=== PATIENT | female | born 1965 | race Caucasian/White ===

== ENCOUNTER 2018-02-10 21:47 | Inpatient (IN) | payer MEDICARE, MEDICAID ==
--- NOTE | 2018-02-10 23:04 | RAD ---
AP VIEW OF THE CHEST: 02/10/18 INDICATION: History of DKA and leukocytosis. FINDINGS: No acute abnormality. The AICD is unchanged in appearance. Chronic lung changes are similar. Chronic osseous changes are similar to the comparison 07/10/17. IMPRESSION: No acute abnormality. POS: [facility]
[2018-02-10] MEDS ORDERED: Ketorolac Tromethamine 30 MG/ML VIAL ONE (23:19)
[2018-02-10 23:37] LABS: ALT (SGPT) 129 U/L (8-55); AST (SGOT) 81 U/L (5-34); Albumin 4.2 g/dL (3.5-5.0); Alkaline Phosphatase 118 U/L (40-150); Anion Gap 17 mmol/L (10-20); BUN (Urea Nitrogen) 18 mg/dL (9.8-20.1); Bilirubin, Total 0.2 mg/dL (0.2-1.2); Calc. Creatinine Clearance 0 mL/min (70-130); Calcium 8.9 mg/dL (7.8-10.44); Carbon Dioxide 20 mmol/L (22-29); Chloride 104 mmol/L (98-107); Estimated GFR-MDRD 45; Globulin 3.1 g/dL (2.4-3.5); Glucose 173 mg/dL (70-105); Lipase 4 U/L (8-78); Magnesium 1.8 mg/dL (1.6-2.6); Potassium 3.4 mmol/L (3.5-5.1); Protein, Total 7.3 g/dL (6.0-8.3); Sodium 138 mmol/L (136-145)
[2018-02-11 00:40] LABS: Base Excess-Venous 2.4 mmol/L (0 (+/- 2.5)); Bicarbonate (HCO3v) 28.6 mmol/L (1.0-85.0); CO2 Tension (PvCO2) 51.1 mmHg (41.0-51.0); Calcium, Ionized 1.11 mmol/L (1.12-1.32); Hemoglobin - Calc 10.8 g/dL (12.0-18.0); O2 Tension (PvO2) 21.6 mmHg (35.0-45.0); Potassium 3.7 mmol/L (3.4-4.7); T. Carbon Dioxide 30.2 mmol/L (1.0-85.0); pH (Venous) 7.356 (7.35-7.45)
[2018-02-11] MEDS ORDERED: HYDROcodone/Acetaminophen 5/325 mg Tablet PO PRN ×2 (03:11)
[2018-02-11] MEDS ORDERED: Sodium Chloride 0.9% 1,000 ML IV SCH ×2 (03:11→04:00)
[2018-02-11] MEDS ORDERED: Acetaminophen 325 MG TAB PO PRN (03:11)
[2018-02-11] MEDS ORDERED: Ondansetron ODT 4 MG TAB SL PRN (03:11)
[2018-02-11] MEDS ORDERED: Ondansetron HCl/PF 4 MG/2 ML Vial IVP PRN ×2 (03:11→03:57)
[2018-02-11] MEDS ORDERED: Insulin Regular 300 UNITS/3 ML VIAL SC PRN (03:57)
[2018-02-11] MEDS ORDERED: Dextrose 5% in Water 1,000 ML IV PRN (03:57)
[2018-02-11] MEDS ORDERED: Dextrose 50% Abboject 50 ML SYRINGE SLOW IVP PRN (03:57)
[2018-02-11] MEDS ORDERED: Senokot 8.6 MG TAB PO PRN (03:57)
--- NOTE | 2018-02-11 04:20 | HP ---
DATE OF ADMISSION: 02/11/2018 PRIMARY CARE PHYSICIAN: Cassie Nichols DO PRIMARY SENIOR DEVELOPER: Cj Person MD CHIEF COMPLAINT: The patient is a transfer from [facility] for diabetic ketoacidosis. HISTORY OF PRESENT ILLNESS: The patient is a 52-year-old female with diabetes mellitus type 2, hyper tension, and dyslipidemia who presented to the emergency room at [facility] with nausea and intermitt ent vomiting. The vomitus contained food, which she had eaten. She also lost her appetite. She had 1 or 2 episodes of diarrhea which were watery. She had some abdominal cramping. She also had some mouth pain secondary to recent dental extraction. No fever reported. She had intermittent chills an d generalized weakness. In the emergency room, her initial vital signs showed temperature 97.3, respiration 18, pulse 93, blo od pressure 127/63 with O2 saturation 97% on room air. A workup in the emergency room was consistent with diabetic ketoacidosis with anion gap of 32, bicarbonate 14, creatinine 1.57 with blood glucose of 441. Ketones was 2.43. She received IV fluid with Zofran, Phenergan, and was started on insulin drip. PAST MEDICAL HISTORY: 1. Diabetes mellitus type 2. 2. Hypertension. 3. Dyslipidemia. 4. Hypothyroidism. 5. Anxiety and depression. 6. Cardiomyopathy. PAST SURGICAL HISTORY: 1. AICD placement. 2. Back surgery at age of 10. 3. Cholecystectomy. 4. Right total hip replacement. 5. Laser surgery of her left eye. ALLERGIES: Patient is allergic to MORPHINE, SULFA, AMBIEN and PROCHLORPERAZINE. FAMILY HISTORY: Father with [place]. Mother with cirrhosis of liver. SOCIAL HISTORY: She is , lives at home with her family. No tobacco, alcohol, or drug use. REVIEW OF SYSTEMS: The following complete review of systems was negative, unless otherwise mentioned in the HPI or below: Constitutional: Weight loss or gain, ability to conduct usual activities. Sk in: Rash, itching. Eyes: Double vision, pain. ENT/Mouth: Nose bleeding, neck stiffness, pain, te nderness. Cardiovascular: Palpitations, dyspnea on exertion, orthopnea. Respiratory: Shortness of breath, wheezing, cough, hemoptysis, fever or night sweats. Gastrointestinal: Poor appetite, abdom inal pain, heartburn, nausea, vomiting, constipation, or diarrhea. Genitourinary: Urgency, frequenc y, dysuria, nocturia. Musculoskeletal: Pain, swelling. Neurologic/Psychiatric: Anxiety, depressio n. Allergy/Immunologic: Skin rash, bleeding tendency. HOME MEDICATIONS: Patient does not remember all of her home medications. She is currently on Levemi r. She denies any noncompliance with her medications. PHYSICAL EXAMINATION: VITAL SIGNS: As discussed above. GENERAL: A 52-year-old female with generalized weakness and fatigue. HEENT: Head: Atraumatic, normocephalic. Sclera anicteric. Dry mucous membranes. No oral lesion. NECK: Supple. No JVD appreciated. No carotid bruit. LUNGS: Essentially clear to auscultation bilaterally. No wheezing, rales, or rhonchi. HEART: S1, S2 present. Regular rate and rhythm. No rubs or gallops. ABDOMEN: Soft, mild epigastric tenderness, without any rebound, guarding. No costovertebral angle t enderness. EXTREMITIES: No edema or calf tenderness. NEUROLOGIC: Grossly nonfocal. Moves all four extremities. PSYCHIATRY: Alert, awake, oriented x3. SKIN: Warm and dry. LYMPH NODES: No palpable lymph nodes in the neck. PERIPHERAL VASCULAR: Radial pulses palpable bilaterally. MUSCULOSKELETAL: No joint swelling or tenderness. LABORATORY AND DIAGNOSTIC FINDINGS: As discussed above. Total bilirubin was 0.3 with AST 152, ALT o f 170. Ketone was 2.43. WBC was 7.2. Chest x-ray by my review was negative for infiltrate. Teleme try monitoring by my review showed sinus rhythm. IMPRESSION: 1. Diabetic ketoacidosis of unclear etiology. Probably precipitated by dehydration. 2. Nausea, vomiting, and diarrhea. Possibilities include infectious gastroenteritis versus due to d iabetic ketoacidosis. The patient denies missing any insulin dose. 3. Abnormal liver function tests, probably secondary to dehydration. 4. Acute kidney injury on chronic kidney disease, stage 2 secondary to dehydration. 5. Metabolic acidosis secondary to diabetic ketoacidosis. 6. Chronic anemia. 7. Hypertension. 8. Diabetes mellitus type 2. 9. Dyslipidemia. 10. Hypothyroidism. 11. Anxiety, depression 12. Cardiomyopathy with ejection fraction 25%, status post automated implantable cardioverter defibr illator. Patient also has a history of ventricular tachycardia. PLAN: The patient will be monitored on the medical floor. Her repeat labs at this facility showed n ormal anion gap. We will discontinue insulin drip and start her on sliding scale. Continue IV fluid s. We will monitor closely for volume overload. We will repeat labs on a daily basis. Plan of care was discussed with the patient in detail, she stated understanding.
[2018-02-11] MEDS: NS 0.9% w/ 20 MEQ KCL 1,000 ML/1,000 ML BAG IV SCH ×2 (04:25→13:09)
[2018-02-11 05:06] VITALS: BMI 19.3
[2018-02-11] MEDS: Insulin Regular 300 UNITS/3 ML VIAL SC PRN ×3 (06:56→19:16)
[2018-02-11] MEDS: Famotidine 20 MG TAB PO SCH (08:19)
[2018-02-11] MEDS: Potassium Chloride 20 MEQ TAB PO SCH (08:19)
[2018-02-11] MEDS: Acetaminophen 325 MG TAB PO PRN ×2 (08:25→14:22)
[2018-02-11] MEDS: Ondansetron ODT 4 MG TAB PO PRN ×2 (08:25→14:25)
[2018-02-11 10:46] LABS: Anion Gap 13 mmol/L (10-20); BUN (Urea Nitrogen) 21 mg/dL (9.8-20.1); Calc. Creatinine Clearance 31 mL/min (70-130); Calcium 9.4 mg/dL (7.8-10.44); Carbon Dioxide 22 mmol/L (22-29); Chloride 105 mmol/L (98-107); Estimated GFR-MDRD 39; Glucose 246 mg/dL (70-105); Potassium 4.1 mmol/L (3.5-5.1); Sodium 136 mmol/L (136-145)
[2018-02-11 14:20] LABS: Hemoglobin A1c 7.5 % (4.0-6.0)
--- NOTE | 2018-02-11 15:02 | PDOC.EVN ---
Event Note - Event Note Event Note: Pt has Right mandibular Swelling, With Cavitary lesion, No antibiotics started Prior to hospitalization, pt has severe pain, so ordered Inflammatory markers and CT mandibiular bone, Consulted oral surgeon to evalaute the swelling, pt went into DKA likely from Dental infection.
[2018-02-11 15:48] LABS: #Eosinphils 0.1 thou/uL (0.0-0.7); #Monocytes 0.6 thou/uL (0.11-0.59); #Neutrophils 6.1 thou/uL (1.40-6.50); %Basophils 0.3 % (0.0-1.0); %Eosinophils 1.1 % (0.0-10.0); %Lymphocytes 22.2 % (21.0-51.0); %Monocytes 7.2 % (0.0-10.0); %Neutrophils 69.1 % (42.0-75.0); Hemoglobin 10.6 g/dL (12.0-16.0); Mean Platelet Volume 6.9 fL (7.4-10.4); Platelet Count 178 thou/uL (130-400); RBC Distribution Width 10.9 % (11.5-14.5); Red Blood Cell (RBC) Count 3.22 mill/uL (4.20-5.40); White Blood Cell (WBC) Count 8.8 thou/uL (4.8-10.8)
--- NOTE | 2018-02-11 16:04 | CT ---
FACIAL BONE CT WITH CONTRAST: 02/11/18 COMPARISON: None. CORRELATION: Sinus CT 07/05/17. HISTORY: Right mandibular swelling. Evaluate for abscess. Patient had two teeth removed on Wednesday. TECHNIQUE: Postcontrast facial CT is performed in the axial plane. Reformatted images are submitted for interpre tation. FINDINGS: The visualized brain parenchyma is unremarkable. Bilateral ocular lenses are appropriately located. B oth globes are intact. Retrobulbar fat is preserved. Symmetric attenuation of the optic nerve and ocu lar rectus muscles. Adequate aeration of the sinuses and mastoid air cells. The visualized aerodigestive tract is patent. No obvious abnormalities. Redemonstration of a predominantly lucid focus with expansion involving the medial left maxilla measu ring 1.5 x 1.5 cm. This lesion is unchanged and involves the root of two maxillary teeth. There is so me erosive change which is similar to the previous examination. The central aspect has a soft tissue attenuation of 35 Hounsfield units. There is abnormal air attenuation involving the right mandible, likely due to recent tooth extraction . There is mild edema in the adjacent gingival tissues. An obvious drainable soft tissue abscess is n ot appreciated. IMPRESSION: 1. Postsurgical changes compatible with recent tooth extraction of the right mandible with incre ased air attenuation. No evidence of a drainable abscess in the adjacent gingival tissues. 2. Chronic changes involving the left maxilla with a lucent focus. Complex periapical cyst is fa vored. POS: [facility]
[2018-02-11] MEDS ORDERED: ISOVUE-370 76%-LOCM 1 ML ONE (16:12)
[2018-02-11] MEDS: Piperacillin/Tazobactam 3.375 GM in Sodium Chloride 0.9% 100 ML IVPB SCH (18:22)
[2018-02-11] MEDS ORDERED: Insulin Detemir 100 UNITS/ML 18 UNITS in Pre-Filled Syringe 1 EACH SC SCH (21:00)
[2018-02-12] MEDS: Piperacillin/Tazobactam 3.375 GM in Sodium Chloride 0.9% 100 ML IVPB SCH ×4 (00:10→17:21)
[2018-02-12] MEDS: NS 0.9% w/ 20 MEQ KCL 1,000 ML/1,000 ML BAG IV SCH ×3 (00:10→23:15)
[2018-02-12] MEDS: Acetaminophen 325 MG TAB PO PRN ×2 (00:11→09:18)
[2018-02-12 04:32] LABS: #Eosinphils 0.1 thou/uL (0.0-0.7); #Lymphocytes 1.4 thou/uL (1.20-3.40); #Monocytes 0.8 thou/uL (0.11-0.59); #Neutrophils 5.4 thou/uL (1.40-6.50); %Basophils 0.3 % (0.0-1.0); %Lymphocytes 18.6 % (21.0-51.0); %Monocytes 9.7 % (0.0-10.0); %Neutrophils 70.4 % (42.0-75.0); Hemoglobin 9.9 g/dL (12.0-16.0); Mean Corpuscular HGB CONC 33.8 g/dL (32.0-36.0); Mean Corpuscular Hemoglobin 32.7 pg (27.0-31.0); Mean Corpuscular Volume 96.8 fl (81.0-99.0); Mean Platelet Volume 7.4 fL (7.4-10.4); Platelet Count 177 thou/uL (130-400); Red Blood Cell (RBC) Count 3.02 mill/uL (4.20-5.40); White Blood Cell (WBC) Count 7.7 thou/uL (4.8-10.8)
[2018-02-12 05:01] LABS: ALT (SGPT) 82 U/L (8-55); AST (SGOT) 44 U/L (5-34); Albumin 3.8 g/dL (3.5-5.0); Alkaline Phosphatase 91 U/L (40-150); Anion Gap 8 mmol/L (10-20); BUN (Urea Nitrogen) 16 mg/dL (9.8-20.1); Bilirubin, Total 0.2 mg/dL (0.2-1.2); Calc. Creatinine Clearance 37 mL/min (70-130); Calcium 9.5 mg/dL (7.8-10.44); Carbon Dioxide 26 mmol/L (22-29); Chloride 110 mmol/L (98-107); Estimated GFR-MDRD 47; Globulin 2.7 g/dL (2.4-3.5); Glucose 141 mg/dL (70-105); Magnesium 1.9 mg/dL (1.6-2.6); Phosphorus 2.6 mg/dL (2.3-4.7); Potassium 4.2 mmol/L (3.5-5.1); Protein, Total 6.5 g/dL (6.0-8.3); Sodium 140 mmol/L (136-145)
[2018-02-12] MEDS: Famotidine 20 MG TAB PO SCH (08:15)
[2018-02-12] MEDS: Potassium Chloride 20 MEQ TAB PO SCH (08:15)
[2018-02-12] MEDS ORDERED: Insulin Detemir 100 UNITS/ML 18 UNITS in Pre-Filled Syringe 1 EACH SC SCH (09:00)
--- NOTE | 2018-02-12 13:23 | PDOC.PN ---
- Subjective Encounter Start Date: 02/12/18 Encounter Start Time: 12:00 patient is seen today, alert and oriented. No other concern noted. She continuos to have pain her swollen cavity in right low mandible. - Objective Resuscitation Status: Resuscitation Status FULL:Full Resuscitation Vital Signs & Weight: Vital Signs (12 hours) Temp Pulse Resp BP Pulse Ox 02/12/18 12:18 98.6 F 69 18 160/89 H 98 02/12/18 08:00 98.5 F 75 20 02/12/18 07:57 98.5 F 75 20 124/76 98 02/12/18 04:00 98.4 F 75 18 119/65 96 Weight Weight 96 lb I&O: 02/11/18 02/12/18 02/13/18 06:59 06:59 06:59 Intake Total 780 721 240 Balance 780 721 240 Result Diagrams: 02/12/18 03:21 02/12/18 03:21 Additional Labs: Accuchecks 02/12/18 02/12/18 02/12/18 11:42 08:15 06:10 POC Glucose 134 H 120 H 110 02/12/18 02/12/18 02/11/18 01:06 00:06 22:07 POC Glucose 94 36 L* 191 H 02/11/18 02/11/18 02/11/18 20:16 19:06 18:22 POC Glucose 400 H 512 H Greater than 550 H* 02/11/18 16:38 POC Glucose 536 H Radiology Reviewed by me: Yes Phys Exam - Physical Examination HEENT: PERRLA, moist MMs Right mandibular enlargement. Neck: no nodes, no JVD Respiratory: no wheezing, no rales Cardiovascular: RRR, no significant murmur Gastrointestinal: soft, non-tender Musculoskeletal: no edema, pulses present Neurological: non-focal, normal sensation Psychiatric: A&O x 3 Skin: no rash, normal turgor Dx/Plan (1) Sepsis due to oral infection Code(s): A41.9 - SEPSIS, UNSPECIFIED ORGANISM; K12.1 - OTHER FORMS OF STOMATITIS Status: Acute Comment: will continue with IV zosyn today, change to oral augmentin tomorrow , Pt seen by Dentist here in hospital, recommeded to see her as outpaitent. (2) Hypoglycemia Code(s): E16.2 - HYPOGLYCEMIA, UNSPECIFIED Status: Acute Comment: Will reduce Levmir to 10 untis (3) DM type 2 (diabetes mellitus, type 2) Status: Acute Comment: Continue on Sliding scale. (4) HTN (hypertension) Code(s): I10 - ESSENTIAL (PRIMARY) HYPERTENSION Status: Acute Comment: Well controlled, Continue her home Meds. - Plan cont current plan of care, continue antibiotics, PT/OT, medical social worker, incentive spirometry, DVT proph w/lovenox * . - Discharge Day Encounter end time: 12:35 Review of Systems - Review of Systems Eyes: negative: Pain, Vision Change, Conjunctivae Inflammation, Eyelid Inflammation, Redness, Other ENT: negative: Ear Pain, Ear Discharge, Nose Pain, Nose Discharge, Nose Congestion, Mouth Pain, Mouth Swelling, Throat Pain, Throat Swelling, Other Respiratory: negative: Cough, Dry, Shortness of Breath, Hemoptysis, SOB with Excertion, Pleuritic Pain, Sputum, Wheezing Cardiovascular: negative: chest pain, palpitations, orthopnea, paroxysmal nocturnal dyspnea, edema, light headedness, other Gastrointestinal: negative: Nausea, Vomiting, Abdominal Pain, Diarrhea, Constipation, Melena, Hematochezia, Other Musculoskeletal: negative: Neck Pain, Shoulder Pain, Arm Pain, Back Pain, Hand Pain, Leg Pain, Foot Pain, Other - Medications/Allergies Allergies/Adverse Reactions: Allergies Allergy/AdvReac Type Severity Reaction Status Date / Time ciprofloxacin [From Cipro] Allergy Verified 02/11/18 05:09 codeine Allergy Verified 02/11/18 05:09 lisinopril Allergy Verified 02/11/18 05:09 morphine Allergy Verified 06/30/16 23:42 prochlorperazine Allergy Verified 06/30/16 23:42 prochlorperazine edisylate Allergy Verified 06/30/16 23:42 [From Compazine] prochlorperazine maleate Allergy Verified 06/30/16 23:42 [From Compazine] Sulfa (Sulfonamide Allergy Verified 06/30/16 23:42 Antibiotics) zolpidem tartrate AdvReac Verified 06/30/16 23:42 [From Ambien] Medications: Current Medications Acetaminophen (Tylenol) 650 mg PO Q4H PRN PRN Reason: Headache/Fever or Pain Last Admin: 02/12/18 09:18 Dose: 650 mg Hydrocodone Bitart/Acetaminophen ([place] 5/325) 1 tab PO Q4H PRN PRN Reason: Pain Dextrose/Water (Dextrose 50%) 25 gm SLOW IVP PRN PRN PRN Reason: Hypoglycemia Famotidine (Pepcid) 20 mg PO DAILY [facility] Last Admin: 02/12/18 08:15 Dose: 20 mg Glucagon (Glucagon) 1 mg IM PRN PRN PRN Reason: Hypoglycemia Dextrose/Water (D5w) 1,000 mls @ 0 mls/hr IV .Q0M PRN; As Directed PRN Reason: Hypoglycemia Potassium Chloride/Sodium Chloride (Ns 0.9% W/ 20 Meq Kcl) 1,000 ml in 1,000 mls @ 100 mls/hr IV .Q10H [facility] Last Admin: 02/12/18 11:03 Dose: 1,000 mls Piperacillin Sod/Tazobactam (Sod 3.375 gm/ Sodium Chloride) 100 mls @ 200 mls/ hr IVPB Q6HR [facility] Last Admin: 02/12/18 11:05 Dose: 100 mls Insulin Detemir 10 units/ (Miscellaneous Medication) 0.1 mls @ 0 mls/hr SC HS [facility] Insulin Human Regular (Humulin R) 0 units SC .MODERATE SLIDING SC PRN PRN Reason: Moderate Correctional Scale Last Admin: 02/11/18 19:16 Dose: 10 unit Insulin Human Regular (Humulin R) 0 units SC .BEDTIME SLIDING SC PRN PRN Reason: Bedtime Correctional Scale Ondansetron HCl (Zofran Odt) 4 mg PO Q6H PRN PRN Reason: Nausea/Vomiting Last Admin: 02/11/18 14:25 Dose: 4 mg Ondansetron HCl (Zofran) 4 mg IVP Q6H PRN PRN Reason: Nausea/Vomiting Potassium Chloride (K-Dur) 20 meq PO QAM-WM [facility] Last Admin: 02/12/18 08:15 Dose: 20 meq Senna (Senokot) 2 tab PO HSPRN PRN PRN Reason: Constipation Sodium Chloride (Flush - Normal Saline) 10 ml IVF Q12HR [facility] Last Admin: 02/12/18 08:16 Dose: Not Given Sodium Chloride (Flush - Normal Saline) 10 ml IVF PRN PRN PRN Reason: Saline Flush
--- NOTE | 2018-02-12 14:31 | CON ---
DATE OF CONSULTATION: 02/12/2018 REASON FOR CONSULTATION: Possible jaw swelling. CHIEF COMPLAINT/HISTORY OF PRESENT ILLNESS: This is a 52-year-old female with a history of uncontrol led diabetes, had two lower molars removed at a clinic in [place], [place] approximately 4 days ago, had decreased p.o. at that time and pain from her right lower jaw. She was seen at [facility] 2 -1/2 days ago with some nausea, intermittent vomiting. She was found to have diabetic ketoacidosis w ith anion gap. She has since been put on IV antibiotics and IV fluid resuscitation and insulin drip with resolution of her acidosis. PAST MEDICAL HISTORY: Insulin-dependent diabetes mellitus, hypertension, dyslipidemia, hypothyroidis m, anxiety, depression, cardiomyopathy, ejection fraction approximately 25%. PAST SURGICAL HISTORY: The patient has had an AICD placement, back surgery at age 10, cholecystectom y, right total hip replacement, LASIK left eye surgery. ALLERGIES: MORPHINE, SULFA, AMBIEN and PROCHLORPROMAZINE. SOCIAL HISTORY: The patient denies alcohol, tobacco or drug abuse. She lives at home with her famil y. PHYSICAL EXAMINATION: VITAL SIGNS: Temperature 98.5, pulse 75, respirations 20, satting 97% on room air, blood pressure 12 4/76. GENERAL: The patient is awake, alert, and oriented x3. She is sitting at her bedside, drinking a co la. She is in no acute distress or pain. HEENT: Her oral opening is good. Her oropharynx is clear. There are no signs or symptoms of infect ion or drainage or cellulitis in her oral cavity or face. She does have 2 recent extraction sockets or fresh extraction sockets of 2 right mandibular molars. She has no tenderness to palpation of othe r teeth. She does have slight tenderness to palpation of the right mandible. There is no swelling i n the neck. Her occlusion is good. She has no paresthesia. LABORATORY: From this morning, white blood cell count is 7.7, blood sugar 134. CT scan of the face shows recent extractions of 2 posterior right mandibular molars. Periapical lesi on above teeth #10 and 11. ASSESSMENT: A 52-year-old female status post extraction of 2 teeth approximately 4 days ago at a [facility] in [place], presenting with diabetic ketoacidosis, which appears to have resolved at this point. PLAN: My recommendations to have the patient follow up in my clinic within 1 week of discharge. Rec ommend the patient to start Peridex oral rinse 15 mL swish and spit t.i.d. indefinitely.
[2018-02-12] MEDS: HYDROcodone/Acetaminophen 5/325 mg Tablet PO PRN ×2 (15:33→21:54)
[2018-02-12] MEDS: Insulin Regular 300 UNITS/3 ML VIAL SC PRN (15:53)
[2018-02-12] MEDS ORDERED: Rosuvastatin 20 MG TAB PO SCH (21:00)
[2018-02-12] MEDS ORDERED: traZODone HCl 50 MG TAB PO SCH (21:00)
[2018-02-12] MEDS ORDERED: [UNRECOGNIZED DRUG - OTHER] PO SCH (21:00)
[2018-02-12] MEDS ORDERED: Insulin Detemir 100 UNITS/ML 10 UNITS in Pre-Filled Syringe 1 EACH SC SCH (21:00)
[2018-02-12] MEDS ORDERED: clonazePAM 1 MG TAB PO SCH (21:00)
[2018-02-12] MEDS: Carvedilol 6.25 MG TAB PO SCH (21:39)
[2018-02-13] MEDS: Piperacillin/Tazobactam 3.375 GM in Sodium Chloride 0.9% 100 ML IVPB SCH ×3 (00:37→11:11)
[2018-02-13] MEDS ORDERED: Levothyroxine Sodium 75 MCG TAB PO SCH (06:00)
[2018-02-13] MEDS: Acetaminophen 325 MG TAB PO PRN (06:36)
[2018-02-13] MEDS: NS 0.9% w/ 20 MEQ KCL 1,000 ML/1,000 ML BAG IV SCH (08:58)
[2018-02-13] MEDS: Potassium Chloride 20 MEQ TAB PO SCH (09:00)
[2018-02-13] MEDS: Carvedilol 6.25 MG TAB PO SCH (09:00)
[2018-02-13] MEDS: Famotidine 20 MG TAB PO SCH (09:00)
[2018-02-13] MEDS: Insulin Regular 300 UNITS/3 ML VIAL SC PRN (11:18)
[2018-02-13] MEDS: HYDROcodone/Acetaminophen 5/325 mg Tablet PO PRN (13:41)
[2018-02-13 14:28] VITALS: BP 112/63; TEMP 98.2
--- NOTE | 2018-02-13 14:37 | DIS ---
DATE OF ADMISSION: 02/11/2018 DATE OF DISCHARGE: 02/13/2018 ADMITTING DIAGNOSIS: Hyperglycemia, poorly controlled type 2 diabetes mellitus. DISCHARGE DIAGNOSIS: Hyperglycemia, poorly controlled type 2 diabetes mellitus. SECONDARY DIAGNOSES: 1. Sepsis with oral infection. 2. Hypertension. 3. Hypoglycemia. 4. Hypothyroidism. 5. History of cardiomyopathy with low EF with an AICD. HISTORY OF PRESENT ILLNESS AND HOSPITAL COURSE: In brief, this is a 52-year-old female with type 2 d iabetes mellitus with history of dyslipidemia who presented to the ER for [facility] with nausea, vom iting, and she was initially diagnosed with DKA and was started on insulin drip, but by the time she reached to the [place] ER, a repeat blood gases showed a normal anion gap and insulin drip was dis continued. The patient was closely monitored and she was noted to have a right dental infection, rig ht lower mandible dental infection, so CT of the oral cavity was ordered, which did not show any evid ence of an abscess and an oral surgeon was also consulted who suggested no need of any tooth extracti on at this time. Advised to follow up as outpatient. The patient was closely monitored. She was no t been able to eat and her blood sugar has been dropping, so reduced the Levemir. During the hospita lization, she continued to drop, so advised the patient to hold off on the Levemir until she starts e ating well and till then to continue on the sliding scale insulin. The patient was on IV antibiotics for at least 3 days and then changed to p.o. antibiotics to continue for 3 more days. Patient is di scharged home in stable condition. PHYSICAL EXAMINATION: On date of discharge: VITAL SIGNS: Blood pressures are 114/61, heart rate is 68, respirations 16, saturation 98%. GENERAL: The patient is moderately built, moderately nourished. CARDIOVASCULAR SYSTEM: S1, S2 normal. No murmurs, rubs or gallops. LUNGS: Bilateral air entry was equal. No wheezing, no crackles. ABDOMEN: Soft, nontender, no guarding, no rebound tenderness. Bowel sounds normal. DISCHARGE MEDICATIONS: 1. Coreg 6.25 mg p.o. b.i.d. 2. Klonopin 2 mg p.o. at bedtime. 3. Desvenlafaxine succinate 50 mg p.o. at bedtime. 4. Lasix 20 mg p.o. daily. 5. Insulin 7 units subcu t.i.d. 6. Levothyroxine 75 mcg p.o. daily. 7. Pantoprazole 40 mg p.o. daily dose. 8. Rosuvastatin 20 mg p.o. at bedtime. 9. Spironolactone 25 mg p.o. daily. 10. Trazodone 100 mg p.o. daily. 11. Advised to hold the NPH insulin until the blood sugars are more stabilized. 12. Advised to continue the sliding scale insulin. DISCHARGE INSTRUCTIONS: Continue activity as tolerated. Continue the complete course of antibiotics . Follow up with the primary care physician in 1 week. Advised to hold on the high dose of NPH insu rowan as the patient is not eating, but advised to continue on the sliding scale. Follow up with the d ental surgeon as suggested. I spent 35 minutes with this patient at the day of discharge.
--- NOTE | 2018-02-18 13:09 | PQF ---
GUY ESQUIVELAINE PATTIENALLELY CAMARENA [id number] CLINICAL DOCUMENTATION CLARIFICATION FORM: POST DISCHARGE Addendum to original discharge summary date: 02/13/2018 DATE: 02/18/2018 ATTN: Dr. Cullen Please exercise your independent, professional judgment in responding to the clarification form. Clinical indicators are provided on the bottom of this form for your review Please check appropriate box(s): [ ] Sepsis is a postoperative complication related to recent surgery (dental extraction) [ x ] Sepsis is not a postoperative complication related to recent surgery ( dental extraction) [ ] Other diagnosis (please specify) [ ] Unable to determine In addition, please specify: Present on Admission (POA): [ x ] Yes [ ] No [ ] Unable to determine CLINICAL INDICATORS - SIGNS / SYMPTOMS / LABS Per discharge summary: Sepsis with oral infection. Pain at recent tooth extraction site. RISK FACTORS (per consultation) Recent dental extraction of two right mandibular molars. TREATMENT: Per 02/12 Hospitalist Progress Note: IV Zosyn with change to oral Augmentin. (This form is maintained as a part of the permanent medical record) 2014 [employer]. All Rights Reserved [email or web address] [phone] [email or web address]
== END 2018-02-13 14:26 | disposition home or self-care (01) | DRG 637 ==
LOC: ERS 21:47 → T4-B 02-11 00:30
PROVIDERS: ADMIT Internal Medicine; ATTEND Internal Medicine
DX: E11.65 Type 2 diabetes mellitus with hyperglycemia (principal); A41.9 Sepsis, unspecified organism; N17.9 Acute kidney failure, unspecified; I42.9 Cardiomyopathy, unspecified; E11.22 Type 2 diabetes mellitus with diabetic chronic kidney disease; E11.649 Type 2 diabetes mellitus with hypoglycemia without coma; E78.5 Hyperlipidemia, unspecified; E03.9 Hypothyroidism, unspecified; F41.9 Anxiety disorder, unspecified; I12.9 Hypertensive chronic kidney disease with stage 1 through stage 4 chronic kidney disease, or unspecified chronic kidney disease; N18.2 Chronic kidney disease, stage 2 (mild); F32.9 Major depressive disorder, single episode, unspecified; K12.1 Other forms of stomatitis; D64.9 Anemia, unspecified; Z88.2 Allergy status to sulfonamides; Z88.8 Allergy status to other drugs, medicaments and biological substances; Z88.5 Allergy status to narcotic agent; Z95.810 Presence of automatic (implantable) cardiac defibrillator; Z96.641 Presence of right artificial hip joint
CPT/HCPCS: 36415; 36416; 70487; 71045; 80048; 80053; 82010; 82330; 82435; 82803; 83036; 83690; 83735; 84100; 84132; 84295; 85014; 85025; 85652; 86140; 96365; 96366; 96375; A4216; J1815; J1885; J2543; J7050; Q0162

== ENCOUNTER 2018-02-24 16:45 | Inpatient (IN) | payer MEDICARE, MEDICAID ==
[2018-02-24] MEDS ORDERED: NS 0.9% w/ 20 MEQ KCL 1,000 ML IV PRN (17:34)
[2018-02-24] MEDS ORDERED: Sodium Chloride 0.9% 1,000 ML IV PRN ×4 (17:34)
[2018-02-24] MEDS ORDERED: CCU Electrolyte Replacement 1 EACH IVPB ONE (17:34)
[2018-02-24] MEDS ORDERED: Dextrose 5 %-0.45 % NaCl 1,000 ML IV PRN (17:34)
[2018-02-24] MEDS ORDERED: Ondansetron HCl/PF 4 MG/2 ML Vial IVP PRN (17:38)
[2018-02-24] MEDS ORDERED: Potassium Phosphate 12 MMOL in Sodium Chloride 0.9% 250 ML 250 ML IV PRN (17:49)
[2018-02-24] MEDS ORDERED: Potassium Phosphate 15 MMOL in Sodium Chloride 0.9% 250 ML 250 ML IV PRN (17:49)
[2018-02-24] MEDS ORDERED: Potassium Chloride 40 MEQ in Sodium Chloride 0.9% 250 ML 250 ML IVPB PRN (17:49)
[2018-02-24] MEDS ORDERED: CCU ELECTROLYTE REPLACEMENT PROTOCOL FS PRN (17:49)
[2018-02-24] MEDS ORDERED: Potassium Phosphate 9 MMOL in Sodium Chloride 0.9% 100 ML IVPB PRN (17:49)
[2018-02-24] MEDS ORDERED: Potassium Chloride 20 MEQ TAB PO PRN (17:49)
[2018-02-24] MEDS ORDERED: Magnesium Oxide 400 MG TAB PO PRN ×2 (17:49)
[2018-02-24] MEDS ORDERED: Magnesium 2 GM/NS 0.9% 100 ML 2 GM in Premix Bag 1 BAG IVPB PRN (17:49)
[2018-02-24] MEDS ORDERED: Potassium Chloride 40 MEQ in Premix Bag 1 BAG IVPB PRN (17:49)
[2018-02-24 18:22] LABS: Anion Gap 18 mmol/L (10-20); BUN (Urea Nitrogen) 23 mg/dL (9.8-20.1); Calc. Creatinine Clearance 0 mL/min (70-130); Calcium 7.8 mg/dL (7.8-10.44); Chloride 116 mmol/L (98-107); Estimated GFR-MDRD 38; Glucose 316 mg/dL (70-105); Potassium 4.2 mmol/L (3.5-5.1); Sodium 139 mmol/L (136-145)
[2018-02-24 18:25] LABS: Carbon Dioxide 9 mmol/L (22-29)
[2018-02-24 18:33] LABS: Anion Gap 22 mmol/L (10-20); BUN (Urea Nitrogen) 22 mg/dL (9.8-20.1); Calc. Creatinine Clearance 0 mL/min (70-130); Calcium 7.8 mg/dL (7.8-10.44); Carbon Dioxide 11 mmol/L (22-29); Chloride 113 mmol/L (98-107); Estimated GFR-MDRD 36; Glucose 283 mg/dL (70-105); Potassium 4.1 mmol/L (3.5-5.1); Sodium 142 mmol/L (136-145)
[2018-02-24] MEDS: NS 0.9% w/ 20 MEQ KCL 1,000 ML IV PRN ×2 (19:42→22:09)
[2018-02-24] MEDS: Heparin 5,000 UNITS/ML VIAL SC SCH (21:37)
[2018-02-24 22:26] LABS: Anion Gap 12 mmol/L (10-20); BUN (Urea Nitrogen) 18 mg/dL (9.8-20.1); Calc. Creatinine Clearance 0 mL/min (70-130); Calcium 7.7 mg/dL (7.8-10.44); Carbon Dioxide 18 mmol/L (22-29); Chloride 118 mmol/L (98-107); Estimated GFR-MDRD 38; Glucose 240 mg/dL (70-105); Potassium 4.4 mmol/L (3.5-5.1); Sodium 144 mmol/L (136-145)
--- NOTE | 2018-02-24 23:42 | HP ---
PRESENTING COMPLAINT: Nausea and vomiting. PRIMARY CARE PHYSICIAN: Cassie Nichols DO HISTORY OF PRESENT ILLNESS: A 52-year-old female with a history of type 1 diabetes and recent admiss ion for diabetic ketoacidosis, who presented to the emergency room with a 3-day history of feeling un well, with nausea, vomiting. She reports several episodes consisting of recently ingested meals. Sh e denied fevers, chills, abdominal pain, diarrhea, constipation, but she reports a cough without prod uction of sputum. She reports she was recently seen at the dentist about 10 days ago while she had a tooth extraction. She also had her insulin schedule changed recently and she was switched to Levemi r, but states she was not tolerating medication well and also had a poor appetite, so had not really been taking the Levemir. At the emergency room in [place], where she first presented, she was f ound to have elevated WBC and lactic acidosis, but no source of infection was found. Initial glucose was 736. She was given subcutaneous insulin, IV insulin push, and started on IV insulin drip en rou te. En route to [facility], her blood glucose dropped to 356. A repeat lab was order ed and then she was started on the DKA protocol. She was then admitted for further management. PAST MEDICAL HISTORY: Diabetes mellitus type 1, hypertension, dyslipidemia, hypothyroidism, anxiety, depression, and cardiomyopathy. PAST SURGICAL HISTORY: Status post AICD placement, back surgery for scoliosis at 10 years old, jeff cystectomy, right total hip replacement. FAMILY HISTORY: Reviewed and noncontributory. SOCIAL HISTORY: Reviewed and noncontributory. ALLERGIES: MORPHINE, SULFA, AMBIEN, PROCHLORPERAZINE, CIPROFLOXACIN, LISINOPRIL, CODEINE. HOME MEDICATIONS: Carvedilol 6.25 mg b.i.d.; clonazepam 2 mg at bedtime; desvenlafaxine succinate 50 mg at bedtime; furosemide 20 mg daily; insulin aspart 7 units subcutaneously t.i.d. with meals; insu rowan NPH; Humalog/regular insulin 100 units subcutaneous t.i.d.; levothyroxine sodium 75 mcg q.a.m.; p antoprazole 40 mg daily; rosuvastatin 20 mg at bedtime; spironolactone 25 mg daily; trazodone 100 mg daily; amoxicillin/potassium clavulanate 875 mg/125 mg tablet, one tablet q.12 hours. REVIEW OF SYSTEMS: Constitutional: Denies fevers, chills, but reports fatigue and generalized weakn ess. HEENT: Negative. Gastrointestinal: Reports occasional abdominal pain, but denies constipatio n, diarrhea. Positive for nausea and vomiting as well. Genitourinary: Negative. Musculoskeletal: Negative. Skin: Negative. Neurologic: Negative. Hematologic/lymphatic: Negative. Allergy/immu nology: Negative. Psychiatric: Negative. PHYSICAL EXAMINATION: VITAL SIGNS: On arrival, blood pressure was 105/53, pulse rate 95, respiratory rate 17, temperature 98.7, oxygen saturation was 100% on room air. GENERAL: Not in acute distress, sitting comfortably in bed. HEENT: Normocephalic, atraumatic. Not pale, anicteric. No lymphadenopathy. PERRLA. EOMI. Moist mucous membranes. CARDIOVASCULAR: S1 and S2 only. CARDIOVASCULAR: Regular rate and rhythm. No murmurs, rubs, or gallops. RESPIRATORY: Vesicular breath sounds bilaterally. No wheezes, rales, or rhonchi. ABDOMEN: Soft. Bowel sounds normoactive. Nontender, nondistended. No hepatosplenomegaly. MUSCULOSKELETAL: No edema. Full range of movement in all extremities. NEUROLOGIC: Alert and well oriented to time, place, and person. No focal deficits. SKIN: Warm, dry, well perfused. No focal deficits. PSYCHIATRIC: Normal mood and affect. LABORATORY DATA: On arrival, sodium was 139, potassium 4.2, chloride 116, carbon dioxide 9, anion ga p 18, BUN 23, creatinine 1.45, glucose 356, calcium 7.8. Hematology: WBC 19,600, hemoglobin 11.1, p latelet count 233. IMAGING: Chest x-ray showed no acute pulmonary process. Urinalysis showed ketones, but no signs of infection. ASSESSMENT AND PLAN: 1. Diabetic ketoacidosis. The patient presented with diabetic ketoacidosis with markedly elev ated glucose and anion gap, and low bicarbonate. She has been started on DKA protocol. She will be admitted to the ICU, where she will be monitored closely. She will also be made n.p.o. until her ___ __ is back to normal. Pulmonary service will also be consulted because the patient is in the [facility]. 2. Hypothyroidism. We will obtain a TSH and continue on her home medications once it has been confi rmed. 3. Hypertension. Blood pressure is currently at goal. She has been hydrated parenterally. We will monitor blood pressure closely and restart her medications once confirmed. 4. Dyslipidemia. 5. Anxiety and depression. The patient denies suicidal or homicidal ideations. We will resume her home medications once confirmed. 6. Cardiomyopathy. She is chest-pain free and status post automated implantable cardioverter-defibr illator placement. We will monitor on telemetry and resume home medications. 7. Deep venous thrombosis prophylaxis with subcutaneous heparin. CODE STATUS: FULL CODE. CRITICAL CARE TIME: 40 minutes including chart review and documentation.
[2018-02-25] MEDS: D5 1/2 NS w/20 mEq KCL 1,000 ML IV PRN ×3 (00:08→08:31)
[2018-02-25 01:56] LABS: Anion Gap 6 mmol/L (10-20); BUN (Urea Nitrogen) 16 mg/dL (9.8-20.1); Calc. Creatinine Clearance 34 mL/min (70-130); Calcium 7.4 mg/dL (7.8-10.44); Carbon Dioxide 20 mmol/L (22-29); Chloride 122 mmol/L (98-107); Estimated GFR-MDRD 45; Glucose 212 mg/dL (70-105); Potassium 4.6 mmol/L (3.5-5.1); Sodium 143 mmol/L (136-145)
[2018-02-25 04:37] LABS: Hemoglobin 9.1 g/dL (12.0-16.0); Mean Corpuscular HGB CONC 33.6 g/dL (32.0-36.0); Mean Corpuscular Hemoglobin 32.6 pg (27.0-31.0); Mean Corpuscular Volume 96.9 fl (81.0-99.0); Mean Platelet Volume 6.8 fL (7.4-10.4); Platelet Count 173 thou/uL (130-400); RBC Distribution Width 11.4 % (11.5-14.5); Red Blood Cell (RBC) Count 2.79 mill/uL (4.20-5.40); White Blood Cell (WBC) Count 14.5 thou/uL (4.8-10.8)
[2018-02-25 04:44] LABS: Anion Gap 9 mmol/L (10-20); BUN (Urea Nitrogen) 13 mg/dL (9.8-20.1); Calc. Creatinine Clearance 35 mL/min (70-130); Calcium 7.6 mg/dL (7.8-10.44); Carbon Dioxide 16 mmol/L (22-29); Chloride 120 mmol/L (98-107); Estimated GFR-MDRD 46; Glucose 240 mg/dL (70-105); Potassium 4.4 mmol/L (3.5-5.1); Sodium 141 mmol/L (136-145)
[2018-02-25 07:31] LABS: Hemoglobin A1c 7.6 % (4.0-6.0)
[2018-02-25 07:33] LABS: ALT (SGPT) 14 U/L (8-55); AST (SGOT) 15 U/L (5-34); Albumin 3.3 g/dL (3.5-5.0); Alkaline Phosphatase 62 U/L (40-150); Bilirubin, Direct 0.1 mg/dL (0.1-0.3); Bilirubin, Total Less than 0.2 mg/dL (0.2-1.2); Magnesium 1.8 mg/dL (1.6-2.6); Protein, Total 5.4 g/dL (6.0-8.3)
[2018-02-25 07:34] LABS: Phosphorus 1.1 mg/dL (2.3-4.7)
[2018-02-25 08:21] LABS: Lactic Acid 2.1 mmol/L (0.5-2.2)
[2018-02-25] MEDS: traZODone HCl 50 MG TAB PO SCH (08:30)
[2018-02-25] MEDS: Heparin 5,000 UNITS/ML VIAL SC SCH ×3 (08:31→20:19)
[2018-02-25] MEDS ORDERED: Sodium Chloride 0.65% Nasal 44 ML BOT EA NARE PRN (08:51)
[2018-02-25] MEDS ORDERED: hydrALAZINE 20 MG/ML VIAL SLOW IVP PRN (08:51)
[2018-02-25] MEDS ORDERED: Artificial Tears 18 DROP/0.9 ML EA EYE PRN (08:51)
[2018-02-25] MEDS ORDERED: Eucerin (Mineral Oil/Petrolatum,White) 30 gm Jar TOP PRN (08:51)
[2018-02-25] MEDS ORDERED: Acetaminophen 325 MG TAB PO PRN (08:51)
[2018-02-25] MEDS ORDERED: Senokot 8.6 MG TAB PO PRN (08:51)
[2018-02-25] MEDS ORDERED: Chloraseptic Spray 180 ml Bottle PO PRN (08:51)
[2018-02-25] MEDS ORDERED: Loratadine 10 MG TAB PO PRN (08:51)
[2018-02-25] MEDS ORDERED: Milk Of Magnesia 30 ML UDCUP PO PRN (08:51)
[2018-02-25] MEDS ORDERED: Diabetic Tussin 200 MG/10 ML UDCUP PO PRN (08:51)
[2018-02-25] MEDS ORDERED: Loperamide HCl 2 MG CAP PO PRN (08:51)
[2018-02-25] MEDS ORDERED: Ondansetron ODT 4 MG TAB PO PRN (08:51)
[2018-02-25] MEDS ORDERED: Mag-Al 1200 mg/1200 mg/30 ML UDCUP PO PRN (08:51)
[2018-02-25] MEDS ORDERED: cefTRIAXone\\ROCEPHIN 1 GM, Syringe 0.4 ML in Sterile Water 9.6 ML SLOW IVP SCH (09:00)
[2018-02-25] MEDS ORDERED: Levothyroxine Sodium 75 MCG TAB PO SCH (09:00)
[2018-02-25] MEDS ORDERED: cefTRIAXone\\ROCEPHIN 1 GM in Sodium Chloride 0.9% 100 ML IVPB SCH (09:00)
[2018-02-25] MEDS ORDERED: Sodium Phosphate 30 MMOL in Sodium Chloride 0.9% 250 ML 250 ML IVPB SCH (10:00)
[2018-02-25] MEDS ORDERED: Insulin Detemir 100 UNITS/ML 5 UNITS in Pre-Filled Syringe 1 EACH SC SCH (10:00)
[2018-02-25] MEDS ORDERED: Dextrose 5% in Water 1,000 ML IV PRN (10:00)
[2018-02-25] MEDS ORDERED: Dextrose 50% Abboject 50 ML SYRINGE SLOW IVP PRN (10:00)
[2018-02-25] MEDS ORDERED: HumaLOG 300 UNITS/3 ML VIAL SC PRN ×2 (10:00)
[2018-02-25 10:28] VITALS: BMI 18.3
[2018-02-25] MEDS: 1/2 NS w/KCL 20 mEq 1,000 ML IV SCH ×2 (10:57→20:21)
--- NOTE | 2018-02-25 12:06 | PQF ---
DATE: 02-25-18 ATTN: DR. ARMANDO JOHNSON Please exercise your independent, professional judgment in responding to the clarification form. Clinical indicators are provided on the bottom of this form for your review Please check appropriate box(s): [ x ] Acute Renal Failure (ARF) / Acute Kidney Injury (PAULINA) [ ] Insignificant Lab Values [ ] Other diagnosis [ ] Unable to determine In addition, please specify: Present on Admission (POA): [ x ] Yes [ ] No [ ] Unable to determine National Kidney Foundation Guidelines for CKD Staging Stage I Kidney damage with normal or increased GFR GFR > 90 Stage II Kidney damage with mildly decreased GFR GFR 60- 89 Stage III Kidney damage with moderately decreased GFR GFR 30-59 Stage IV Kidney damage with severely decreased GFR GFR 16-29 Stage V Kidney failure GFR<15 ESRD End Stage Renal Disease On dialysis Acute Renal Failure/Acute Kidney Failure defined as: Increases in SCr by (>) 0.3 mg/dl within 48 hours OR- Increases in SCr by (>) 1.5 times baseline, known or presumed to have occurred within the prior 7 days OR- Urine volume < 0.5 ml/kg/hour for 6 hours (KDIGO supplement 2012 for RIFLE/HERMILO criteria) For continuity of documentation, please document condition throughout progress notes and discharge summary. Thank You. CLINICAL INDICATORS - SIGNS / SYMPTOMS / LABS ER DIAGNOSIS: DKA, PAULINA, LACTIC ACIDOSIS GFR: 02-24-18: 38 36 38 02-25-18: 45 46 CREATININE: 02-24-18: 1.45 1.50 1.43 02-25-18: 1.25 1.21 BUN: 02-24-18: 23 22 BP: 02-24-18: 109/45 02-25-18: 100/51 95/53 H&P: 3 DAY HISTORY OF FELLING UNWELL AND NAUSEA AND VOMITING RISK FACTORS: H&P: 3 DAY HISTORY OF FELLING UNWELL AND NAUSEA AND VOMITING, POOR APPETITE H&P: HX OF DM, HTN, DYSLIPIDEMIA, HYPOTHYROIDISM TREATMENTS: MAR: IVF, INSULIN, SODIUM PHOSPHATE IVF, MAGNESIUM, POTASSIUM CHLORIDE (This form is maintained as a part of the permanent medical record) 2014 [employer] All Rights Reserved EVANGELINA [email or web address] Office: [phone] [facility]PITALDust[facility]
--- NOTE | 2018-02-25 12:30 | PDOC.PN ---
- Subjective Encounter Start Date: 02/25/18 Encounter Start Time: 08:50 -: old records requested/rev Patient seen and examined for DKA. No new complaints. Noted overnight events - Objective MAR Reviewed: Yes Vital Signs & Weight: Vital Signs (12 hours) Temp Pulse Resp BP BP Pulse Ox 02/25/18 11:44 98.0 F 82 104/65 99 02/25/18 08:15 98.4 F 75 8 L 111/60 94 L 02/25/18 07:48 98.4 F 75 18 100 02/25/18 04:00 98.3 F 81 16 95/53 L 97 Weight Admit Weight 91 lb Weight 91 lb I&O: 02/24/18 02/25/18 02/26/18 06:59 06:59 06:59 Intake Total 3625 Output Total 425 Balance 3200 Result Diagrams: 02/25/18 04:13 02/25/18 04:14 Additional Labs: Accuchecks 02/25/18 02/25/18 02/25/18 12:02 11:22 09:57 POC Glucose 140 H 118 H 162 H 02/25/18 02/25/18 02/25/18 09:00 08:30 07:27 POC Glucose 148 H 157 H 174 H 02/25/18 02/25/18 02/25/18 06:10 05:10 04:04 POC Glucose 220 H 207 H 223 H 02/25/18 02/25/18 02/25/18 03:07 02:04 01:07 POC Glucose 243 H 222 H 180 H 02/25/18 02/24/18 02/24/18 00:08 23:07 22:00 POC Glucose 145 H 195 H 238 H 02/24/18 02/24/18 02/24/18 20:59 20:07 18:51 POC Glucose 247 H 279 H 277 H EKG Reviewed by me: Yes (nsr) Phys Exam - Physical Examination Constitutional: NAD HEENT: PERRLA, moist MMs, sclera anicteric Neck: no JVD, supple Respiratory: no wheezing, no rales, no rhonchi Cardiovascular: RRR, no significant murmur, no rub Gastrointestinal: soft, non-tender, no distention, positive bowel sounds Musculoskeletal: no edema, pulses present Neurological: non-focal, normal sensation Lymphatic: no nodes Psychiatric: normal affect, A&O x 3 Skin: no rash, normal turgor Dx/Plan (1) Acute kidney failure Status: Acute Comment: improving (2) DKA, type 2 Code(s): E11.10 - TYPE 2 DIABETES MELLITUS WITH KETOACIDOSIS WITHOUT COMA Status: Acute Comment: DKA resolved (3) Hypotension Status: Acute Comment: now improving (4) Anxiety and depression Code(s): F41.9 - ANXIETY DISORDER, UNSPECIFIED; F32.9 - MAJOR DEPRESSIVE DISORDER, SINGLE EPISODE, UNSPECIFIED Status: Chronic (5) Cardiomyopathy Code(s): I42.9 - CARDIOMYOPATHY, UNSPECIFIED Status: Chronic Comment: euvolemic (6) DM type 2 (diabetes mellitus, type 2) Status: Chronic Comment: Continue on Sliding scale. (7) Dyslipidemia Code(s): E78.5 - HYPERLIPIDEMIA, UNSPECIFIED Status: Chronic (8) GERD (gastroesophageal reflux disease) Code(s): K21.9 - GASTRO-ESOPHAGEAL REFLUX DISEASE WITHOUT ESOPHAGITIS Status: Chronic (9) HTN (hypertension) Code(s): I10 - ESSENTIAL (PRIMARY) HYPERTENSION Status: Chronic Comment: Well controlled, Continue her home Meds. (10) Hypothyroidism Code(s): E03.9 - HYPOTHYROIDISM, UNSPECIFIED Status: Chronic (11) Hypophosphatemia Code(s): E83.39 - OTHER DISORDERS OF PHOSPHORUS METABOLISM Status: Acute - Plan cont current plan of care, continue antibiotics * DC insulin drip * give levemir 5 unit now, restart home dose of levemir * accucheck q 4 hourly and cover with humalog * transfer to medical * medication reviewed as below * symptomatic treatment. * continue rocephin * repeat labs tomorrow * ambulate as tolerated Review of Systems - Review of Systems Constitutional: negative: fever, chills, sweats, weakness, malaise, other Eyes: negative: Pain, Vision Change, Conjunctivae Inflammation, Eyelid Inflammation, Redness, Other ENT: negative: Ear Pain, Ear Discharge, Nose Pain, Nose Discharge, Nose Congestion, Mouth Pain, Mouth Swelling, Throat Pain, Throat Swelling, Other Respiratory: negative: Cough, Dry, Shortness of Breath, Hemoptysis, SOB with Excertion, Pleuritic Pain, Sputum, Wheezing Cardiovascular: negative: chest pain, palpitations, orthopnea, paroxysmal nocturnal dyspnea, edema, light headedness, other Gastrointestinal: negative: Nausea, Vomiting, Abdominal Pain, Diarrhea, Constipation, Melena, Hematochezia, Other Genitourinary: negative: Dysuria, Frequency, Incontinence, Hematuria, Retention , Other Musculoskeletal: negative: Neck Pain, Shoulder Pain, Arm Pain, Back Pain, Hand Pain, Leg Pain, Foot Pain, Other Skin: negative: Rash, Lesions, Arpan, Bruising, Other - Medications/Allergies Allergies/Adverse Reactions: Allergies Allergy/AdvReac Type Severity Reaction Status Date / Time ciprofloxacin [From Cipro] Allergy Verified 02/25/18 00:10 codeine Allergy Verified 02/25/18 00:10 lisinopril Allergy Verified 02/25/18 00:10 morphine Allergy Verified 02/25/18 00:10 prochlorperazine Allergy Verified 02/25/18 00:10 prochlorperazine edisylate Allergy Verified 02/25/18 00:10 [From Compazine] prochlorperazine maleate Allergy Verified 02/25/18 00:10 [From Compazine] Sulfa (Sulfonamide Allergy Verified 02/25/18 00:10 Antibiotics) zolpidem tartrate AdvReac Verified 02/25/18 00:10 [From Ambien] Medications: Current Medications Acetaminophen (Tylenol) 650 mg PO Q4H PRN PRN Reason: Headache/Fever or Mild Pain Al Hydroxide/Mg Hydroxide (Maalox) 15 ml PO Q4H PRN PRN Reason: Heartburn or Indigestion Artificial Tears (Tears Naturale) 0 drop EA EYE PRN PRN PRN Reason: Dry Eyes Clonazepam (Klonopin) 2 mg PO [facility] Dextrose/Water (Dextrose 50%) 25 gm SLOW IVP PRN PRN PRN Reason: Hypoglycemia Glucagon (Glucagon) 1 mg IM PRN PRN PRN Reason: Hypoglycemia Guaifenesin (Robitussin Sf) 200 mg PO Q4H PRN PRN Reason: Cough Heparin Sodium (Porcine) (Heparin) 5,000 units SC TID [facility] Last Admin: 02/25/18 08:31 Dose: 5,000 units Hydralazine HCl (Apresoline) 10 mg SLOW IVP Q4H PRN PRN Reason: Systolic BP > 180 Ceftriaxone Sodium 1 gm/ (Syringe 0.4 ml/ Sterile Water) 10 mls @ 120 mls/hr SLOW IVP 0900 [facility] Last Admin: 02/25/18 09:15 Dose: 10 mls Insulin Detemir 18 units/ (Miscellaneous Medication) 0.18 mls @ 0 mls/hr SC HS [facility] Sodium Phosphate 30 mmol/ (Sodium Chloride) 260 mls @ 65 mls/hr IVPB 1000 [facility] Stop: 02/25/18 14:00 Last Admin: 02/25/18 10:57 Dose: 260 mls Potassium Chloride/Sodium Chloride (1/2 Ns W/Kcl 20 Meq) 1,000 mls @ 75 mls/hr IV .[id number] [facility] Last Admin: 02/25/18 10:57 Dose: 1,000 mls Insulin Detemir 5 units/ (Miscellaneous Medication) 0.05 mls @ 0 mls/hr SC NOW [facility] Stop: 02/25/18 13:00 Last Admin: 02/25/18 10:51 Dose: 0.05 mls Dextrose/Water (D5w) 1,000 mls @ 0 mls/hr IV .Q0M PRN; As Directed PRN Reason: Hypoglycemia Insulin Human Lispro (Humalog) 0 units SC .MODERATE SLIDING SC PRN PRN Reason: Moderate Correctional Scale Insulin Human Lispro (Humalog) 0 units SC .BEDTIME SLIDING SC PRN PRN Reason: Bedtime Correctional Scale Levothyroxine Sodium (Synthroid) 75 mcg PO 0600 [facility] Loperamide HCl (Imodium) 2 mg PO PRN PRN PRN Reason: Diarrhea/Loose Stools Loratadine (Claritin) 10 mg PO DAILYPRN PRN PRN Reason: Sinus Symptoms Magnesium Hydroxide (Milk Of Magnesium) 30 ml PO DAILYPRN PRN PRN Reason: Constipation Mineral Oil/White Petrolatum (Eucerin Cream) 0 gm TOP BIDPRN PRN PRN Reason: Dry Skin Ondansetron HCl (Zofran) 4 mg IVP Q6H PRN PRN Reason: Nausea/Vomiting Ondansetron HCl (Zofran Odt) 4 mg PO Q6H PRN PRN Reason: Nausea/Vomiting Pantoprazole Sodium (Protonix) 40 mg PO DAILY [facility] Last Admin: 02/25/18 08:31 Dose: 40 mg Phenol (Chloraseptic [place] 180 Ml Bot) 0 ml PO PRN PRN PRN Reason: Sore Throat Rosuvastatin Calcium (Crestor) 20 mg PO HS [facility] Senna (Senokot) 2 tab PO HSPRN PRN PRN Reason: Constipation Sodium Chloride ([place] Nasal [place] 0.65%) 0 ml EA NARE QIDPRN PRN PRN Reason: Nasal Congestion Trazodone HCl (Desyrel) 100 mg PO DAILY [facility] Last Admin: 02/25/18 08:30 Dose: 100 mg Venlafaxine HCl (Effexor Xr) 75 mg PO HS [facility]
[2018-02-25] MEDS ORDERED: Insulin Detemir 100 UNITS/ML 18 UNITS in Pre-Filled Syringe 1 EACH SC SCH (21:00)
[2018-02-25] MEDS ORDERED: clonazePAM 0.5 MG TAB PO SCH (21:00)
[2018-02-25] MEDS ORDERED: LEVEMIR 18 UNIT SC SCH (21:00)
[2018-02-25] MEDS ORDERED: Rosuvastatin 20 MG TAB PO SCH (21:00)
[2018-02-25] MEDS ORDERED: Venlafaxine HCl XR 75 MG CAP PO SCH (21:00)
[2018-02-26 01:02] LABS: Bilirubin Negative (Negative); Blood, Urine Negative (Negative); Clarity CLEAR (Clear); Glucose, Urine (Dipstick) 100 mg/dL (Negative); Leukocyte Negative (Negative); Nitrite Negative (Negative); Protein, Urine (Dipstick) Negative (Neg-Trace); Specific Gravity, Urine 1.004 (1.002-1.036); Urobilinogen 0.2 mg/dL (0.2-1.0)
[2018-02-26 01:03] LABS: Bacteria/HPF None Seen HPF (None Seen); Hyaline Casts/LPF 0-3 HYALINE CAST LPF (0-3 Hyaline); RBC/HPF None Seen HPF (0-3); Squamous Epithelial None Seen HPF (0-3)
[2018-02-26 05:20] LABS: #Basophils 0.1 thou/uL (0.0-0.2); #Eosinphils 0.1 thou/uL (0.0-0.7); #Lymphocytes 3.8 thou/uL (1.20-3.40); #Monocytes 0.5 thou/uL (0.11-0.59); #Neutrophils 6.1 thou/uL (1.40-6.50); %Basophils 0.6 % (0.0-1.0); %Eosinophils 0.7 % (0.0-10.0); %Lymphocytes 35.8 % (21.0-51.0); %Monocytes 4.3 % (0.0-10.0); %Neutrophils 58.6 % (42.0-75.0); Hemoglobin 10.6 g/dL (12.0-16.0); Mean Corpuscular HGB CONC 33.5 g/dL (32.0-36.0); Mean Corpuscular Hemoglobin 32.9 pg (27.0-31.0); Mean Corpuscular Volume 98.2 fl (81.0-99.0); Mean Platelet Volume 7.6 fL (7.4-10.4); Platelet Count 151 thou/uL (130-400); RBC Distribution Width 11.7 % (11.5-14.5); Red Blood Cell (RBC) Count 3.23 mill/uL (4.20-5.40); White Blood Cell (WBC) Count 10.5 thou/uL (4.8-10.8)
[2018-02-26 05:40] LABS: Anion Gap 10 mmol/L (10-20); BUN (Urea Nitrogen) 5 mg/dL (9.8-20.1); Calc. Creatinine Clearance 49 mL/min (70-130); Calcium 8.3 mg/dL (7.8-10.44); Carbon Dioxide 17 mmol/L (22-29); Chloride 118 mmol/L (98-107); Estimated GFR-MDRD 70; Glucose 37 mg/dL (70-105); Phosphorus 3.4 mg/dL (2.3-4.7); Potassium 3.9 mmol/L (3.5-5.1); Sodium 141 mmol/L (136-145)
[2018-02-26] MEDS ORDERED: Levothyroxine Sodium 75 MCG TAB PO SCH (06:00)
[2018-02-26 07:30] VITALS: BP 112/66; TEMP 98.5
[2018-02-26] MEDS: Heparin 5,000 UNITS/ML VIAL SC SCH (08:25)
[2018-02-26] MEDS: traZODone HCl 50 MG TAB PO SCH (08:25)
--- NOTE | 2018-02-26 10:03 | PDOC.PN ---
- Subjective Encounter Start Date: 02/26/18 Encounter Start Time: 08:10 Patient seen and examined for dka. No new complaints. Noted overnight events - Objective MAR Reviewed: Yes Vital Signs & Weight: Vital Signs (12 hours) Temp Pulse Resp BP Pulse Ox 02/26/18 07:26 98.5 F 84 16 112/66 92 L Weight Admit Weight 91 lb Weight 91 lb I&O: 02/25/18 02/26/18 02/27/18 06:59 06:59 06:59 Intake Total 3625 1086 Output Total 425 1200 Balance 3200 -114 Result Diagrams: 02/26/18 04:30 02/26/18 04:30 Additional Labs: Accuchecks 02/26/18 02/26/18 02/26/18 07:31 06:20 05:37 POC Glucose 107 74 59 L* 02/26/18 02/25/18 02/25/18 04:54 19:48 16:51 POC Glucose 39 L* 185 H 131 H 02/25/18 02/25/18 02/25/18 12:02 11:22 09:57 POC Glucose 140 H 118 H 162 H Phys Exam - Physical Examination Constitutional: NAD HEENT: PERRLA, moist MMs, sclera anicteric Neck: no JVD, supple Respiratory: no wheezing, no rales, no rhonchi Cardiovascular: RRR, no significant murmur, no rub Gastrointestinal: soft, non-tender, no distention, positive bowel sounds Musculoskeletal: no edema, pulses present Neurological: non-focal, normal sensation, moves all 4 limbs Psychiatric: normal affect, A&O x 3 Skin: no rash, normal turgor Dx/Plan (1) Acute kidney failure Status: Acute Comment: improving (2) DKA, type 2 Code(s): E11.10 - TYPE 2 DIABETES MELLITUS WITH KETOACIDOSIS WITHOUT COMA Status: Acute Comment: DKA resolved (3) Hypotension Status: Acute Comment: now improving (4) Anxiety and depression Code(s): F41.9 - ANXIETY DISORDER, UNSPECIFIED; F32.9 - MAJOR DEPRESSIVE DISORDER, SINGLE EPISODE, UNSPECIFIED Status: Chronic (5) Cardiomyopathy Code(s): I42.9 - CARDIOMYOPATHY, UNSPECIFIED Status: Chronic Comment: euvolemic (6) DM type 2 (diabetes mellitus, type 2) Status: Chronic Comment: Continue on Sliding scale. (7) Dyslipidemia Code(s): E78.5 - HYPERLIPIDEMIA, UNSPECIFIED Status: Chronic (8) GERD (gastroesophageal reflux disease) Code(s): K21.9 - GASTRO-ESOPHAGEAL REFLUX DISEASE WITHOUT ESOPHAGITIS Status: Chronic (9) HTN (hypertension) Code(s): I10 - ESSENTIAL (PRIMARY) HYPERTENSION Status: Chronic Comment: Well controlled, Continue her home Meds. (10) Hypothyroidism Code(s): E03.9 - HYPOTHYROIDISM, UNSPECIFIED Status: Chronic (11) Hypophosphatemia Code(s): E83.39 - OTHER DISORDERS OF PHOSPHORUS METABOLISM Status: Acute - Plan cont current plan of care * pt wants to go home * if no recurrent hypoglycemia today, will discharge later today * medication reviewed as below * symptomatic treatment. Review of Systems - Review of Systems Eyes: negative: Pain, Vision Change, Conjunctivae Inflammation, Eyelid Inflammation, Redness, Other ENT: negative: Ear Pain, Ear Discharge, Nose Pain, Nose Discharge, Nose Congestion, Mouth Pain, Mouth Swelling, Throat Pain, Throat Swelling, Other Respiratory: negative: Cough, Dry, Shortness of Breath, Hemoptysis, SOB with Excertion, Pleuritic Pain, Sputum, Wheezing Cardiovascular: negative: chest pain, palpitations, orthopnea, paroxysmal nocturnal dyspnea, edema, light headedness, other Gastrointestinal: negative: Nausea, Vomiting, Abdominal Pain, Diarrhea, Constipation, Melena, Hematochezia, Other Genitourinary: negative: Dysuria, Frequency, Incontinence, Hematuria, Retention , Other Musculoskeletal: negative: Neck Pain, Shoulder Pain, Arm Pain, Back Pain, Hand Pain, Leg Pain, Foot Pain, Other Skin: negative: Rash, Lesions, Arpan, Bruising, Other - Medications/Allergies Allergies/Adverse Reactions: Allergies Allergy/AdvReac Type Severity Reaction Status Date / Time ciprofloxacin [From Cipro] Allergy Verified 02/25/18 00:10 codeine Allergy Verified 02/25/18 00:10 lisinopril Allergy Verified 02/25/18 00:10 morphine Allergy Verified 02/25/18 00:10 prochlorperazine Allergy Verified 02/25/18 00:10 prochlorperazine edisylate Allergy Verified 02/25/18 00:10 [From Compazine] prochlorperazine maleate Allergy Verified 02/25/18 00:10 [From Compazine] Sulfa (Sulfonamide Allergy Verified 02/25/18 00:10 Antibiotics) zolpidem tartrate AdvReac Verified 02/25/18 00:10 [From Ambien] Medications: Current Medications Acetaminophen (Tylenol) 650 mg PO Q4H PRN PRN Reason: Headache/Fever or Mild Pain Al Hydroxide/Mg Hydroxide (Maalox) 15 ml PO Q4H PRN PRN Reason: Heartburn or Indigestion Artificial Tears (Tears Naturale) 0 drop EA EYE PRN PRN PRN Reason: Dry Eyes Clonazepam (Klonopin) 2 mg PO [facility] Last Admin: 02/25/18 20:19 Dose: 2 mg Dextrose/Water (Dextrose 50%) 25 gm SLOW IVP PRN PRN PRN Reason: Hypoglycemia Glucagon (Glucagon) 1 mg IM PRN PRN PRN Reason: Hypoglycemia Guaifenesin (Robitussin Sf) 200 mg PO Q4H PRN PRN Reason: Cough Heparin Sodium (Porcine) (Heparin) 5,000 units SC TID [facility] Last Admin: 02/26/18 08:25 Dose: 5,000 units Hydralazine HCl (Apresoline) 10 mg SLOW IVP Q4H PRN PRN Reason: Systolic BP > 180 Dextrose/Water (D5w) 1,000 mls @ 0 mls/hr IV .Q0M PRN; As Directed PRN Reason: Hypoglycemia Insulin Detemir 15 units/ (Miscellaneous Medication) 0.15 mls @ 0 mls/hr SC [facility] Insulin Human Lispro (Humalog) 0 units SC .MODERATE SLIDING SC PRN PRN Reason: Moderate Correctional Scale Insulin Human Lispro (Humalog) 0 units SC .BEDTIME SLIDING SC PRN PRN Reason: Bedtime Correctional Scale Levothyroxine Sodium (Synthroid) 75 mcg PO 0600 [facility] Last Admin: 02/26/18 05:41 Dose: 75 mcg Loperamide HCl (Imodium) 2 mg PO PRN PRN PRN Reason: Diarrhea/Loose Stools Loratadine (Claritin) 10 mg PO DAILYPRN PRN PRN Reason: Sinus Symptoms Magnesium Hydroxide (Milk Of Magnesium) 30 ml PO DAILYPRN PRN PRN Reason: Constipation Mineral Oil/White Petrolatum (Eucerin Cream) 0 gm TOP BIDPRN PRN PRN Reason: Dry Skin Ondansetron HCl (Zofran) 4 mg IVP Q6H PRN PRN Reason: Nausea/Vomiting Ondansetron HCl (Zofran Odt) 4 mg PO Q6H PRN PRN Reason: Nausea/Vomiting Pantoprazole Sodium (Protonix) 40 mg PO DAILY [facility] Last Admin: 02/26/18 08:25 Dose: 40 mg Phenol (Chloraseptic [place] 180 Ml Bot) 0 ml PO PRN PRN PRN Reason: Sore Throat Rosuvastatin Calcium (Crestor) 20 mg PO HS [facility] Last Admin: 02/25/18 20:20 Dose: 20 mg Senna (Senokot) 2 tab PO HSPRN PRN PRN Reason: Constipation Sodium Chloride ([place] Nasal [place] 0.65%) 0 ml EA NARE QIDPRN PRN PRN Reason: Nasal Congestion Sodium Chloride (Flush - Normal Saline) 10 ml IVF Q12HR [facility] Last Admin: 02/26/18 08:26 Dose: 10 ml Sodium Chloride (Flush - Normal Saline) 10 ml IVF PRN PRN PRN Reason: Saline Flush Trazodone HCl (Desyrel) 100 mg PO DAILY [facility] Last Admin: 02/26/18 08:25 Dose: 100 mg Venlafaxine HCl (Effexor Xr) 75 mg PO [facility] Last Admin: 02/25/18 20:21 Dose: 75 mg
--- NOTE | 2018-02-26 11:28 | DIS ---
DATE OF ADMISSION: 02/24/2018 DATE OF DISCHARGE: 02/26/2018 PRIMARY CARE PHYSICIAN: Dr. Cassie Nichols. DISCHARGE DISPOSITION: Home. PRIMARY DISCHARGE DIAGNOSES: 1. Acute kidney failure, improved. 2. Diabetes ketoacidosis, resolved. 3. Hypotension, corrected. 4. Hypophosphatemia, corrected. SECONDARY DISCHARGE DIAGNOSES: Hypothyroidism; hypertension; gastroesophageal reflux disease; dyslip idemia; cardiomyopathy; anxiety and depression; diabetes, type 2. PRIMARY PROCEDURE/OPERATION: None. RADIOLOGICAL INVESTIGATION: None. SIGNIFICANT LABORATORY DATA: WBC 10.5, hemoglobin 10.6, platelets 151. Sodium 141, potassium 3.9, B UN 5, creatinine 0.85, calcium 8.3, phosphorus 3.4, magnesium 2.0. Urinalysis unremarkable. Serum k etones 0.04. Blood culture negative. DISCHARGE MEDICATIONS: Coreg 3.125 mg p.o. b.i.d., clonazepam 2 mg p.o. at bedtime, Pristiq 550 mg p .o. at bedtime, Lasix 20 mg p.o. daily p.r.n., NovoLog insulin subcu as per sliding scale per protoco l as directed, Levemir 18 units subcu at bedtime, Synthroid 75 mcg p.o. daily, Protonix 40 mg p.o. da gabe, Crestor 20 mg p.o. at bedtime, Aldactone 25 mg p.o. daily, trazodone 100 mg p.o. daily. CONTRAINDICATIONS: None. CODE STATUS: FULL CODE. INPATIENT CONSULTANTS: None. ALLERGIES: CIPROFLOXACIN, CODEINE, LISINOPRIL, MORPHINE, PROCHLORPERAZINE. DISCHARGE PLAN: Post hospital, the patient will follow up with primary care physician in 1 week. HOSPITAL COURSE: A 52-year-old female with above-mentioned medical problem, who was admitted by Dr. Aldana. Please see his H and P for further details. On admission, the patient was having diabetic ketoacidosis. She required ICU admission. She was treated with diabetic ketoacidosis protocol lesa tment. On admission, the patient was clinically dehydrated, which was improved with IV fluid replace ment. Patient also had leukocytosis and suspected for UTI and that is why she was given Rocephin karthikeyan mehta in hospital, but we are suspecting that leukocytosis was related with acute stress response from d iabetic ketoacidosis, but clinically patient did not have any obvious signs of infection and that is why Rocephin was discontinued given her negative blood culture and hemodynamically stability. Once D KA was resolved with a DKA treatment, we transferred her to medical floor, and today patient wants to go home. Today, we noted that patient's blood sugar was running low and that is why we inquired and she had very little intake last night to eat. The patient wants to go home today, and patient knows about hypoglycemia and hyperglycemia. I provided patient education about diet and insulin therapy. The patient does not want to stay here in the hospital for more adjustment of her insulin dose. Bas ed on her request, we are discharging her home and advised to follow with primary care physician, curt rai to monitor blood sugar and blood pressure at home, and keep diary of that sort. Primary care ph ysician further adjusts the therapy. Patient is seen and examined at bedside today. Please see my progress note from today for further de tail.
[2018-02-26] MEDS ORDERED: Insulin Detemir 100 UNITS/ML 15 UNITS in Pre-Filled Syringe 1 EACH SC SCH (21:00)
== END 2018-02-26 15:39 | disposition home or self-care (01) | DRG 638 ==
LOC: ERS 16:45 → IMCU/EMU 18:22 → T4-A 02-25 13:00
PROVIDERS: ADMIT Internal Medicine; ATTEND Internal Medicine
DX: E10.10 Type 1 diabetes mellitus with ketoacidosis without coma (principal); N17.9 Acute kidney failure, unspecified; I42.9 Cardiomyopathy, unspecified; I95.9 Hypotension, unspecified; E83.39 Other disorders of phosphorus metabolism; E03.9 Hypothyroidism, unspecified; I10 Essential (primary) hypertension; K21.9 Gastro-esophageal reflux disease without esophagitis; E78.5 Hyperlipidemia, unspecified; F41.9 Anxiety disorder, unspecified; F32.9 Major depressive disorder, single episode, unspecified; Z88.1 Allergy status to other antibiotic agents; Z88.5 Allergy status to narcotic agent; Z88.8 Allergy status to other drugs, medicaments and biological substances; D72.829 Elevated white blood cell count, unspecified; Z95.810 Presence of automatic (implantable) cardiac defibrillator; Z79.899 Other long term (current) drug therapy; Z79.4 Long term (current) use of insulin
CPT/HCPCS: 36415; 36416; 80048; 80076; 81001; 82010; 83036; 83605; 83735; 84100; 84443; 85025; 85027; 87086; 93005; 96365; 96366; A4216; J0696; J1644; J1815; J7050

== ENCOUNTER 2018-06-06 10:55 | Inpatient (IN) | payer MEDICARE, MEDICAID ==
[2018-06-06] MEDS ORDERED: Ondansetron HCl/PF 4 MG/2 ML Vial ONE ×2 (11:10→11:39)
[2018-06-06] MEDS ORDERED: HYDROmorphone 0.5 MG/0.5 ML SYRINGE ONE (11:10)
[2018-06-06] MEDS ORDERED: Lidocaine 1% PF 5 ML VIAL ONE (11:39)
[2018-06-06] MEDS ORDERED: Glycopyrrolate 0.2 MG/ML 5 ML SYRINGE ONE (11:39)
[2018-06-06] MEDS ORDERED: PHENYLEPHRINE-NS 100 MCG/ML 10 ML SYRINGE ONE (11:39)
[2018-06-06] MEDS ORDERED: PROPOFOL 200 MG/20 ML VIAL ONE (11:39)
--- NOTE | 2018-06-06 13:29 | RAD ---
RADIOGRAPH LEFT LEG TIBIA FIBULA TWO VIEWS: HISTORY: A 53-year-old female with left leg pain. FINDINGS: There is osteopenia. No fracture, periostitis, osteolytic lesion, or osteoblastic lesion involving t he tibia or fibula. No high grade DJD at the knee or ankle identified. IMPRESSION: 1. Osteopenia. 2. Otherwise negative. POS: JAX
--- NOTE | 2018-06-06 13:31 | RAD ---
RADIOGRAPH PELVIS ONE VIEW: 06/06/2018 HISTORY: A 53-year-old female with left hip pain. FINDINGS: Diffuse osteopenia. The pelvic ring appears to be grossly intact. There is an impacted subcapital f racture involving the proximal left femur. Hip replacement arthroplasty hardware involving the proxi mal right femur. IMPRESSION: 1. Traumatic, impacted, mildly displaced, and minimally angulated subcapital acute fracture of the l eft proximal femur. 2. Status post right hip replacement arthroplasty. 3. Diffuse osteopenia. POS: KEEGAN
[2018-06-06 13:45] VITALS: BMI 18.1
--- NOTE | 2018-06-06 14:19 | CON ---
DATE OF CONSULTATION: 06/06/2018 REQUESTING PHYSICIAN: Dr. Juan. CONSULTING PHYSICIAN: Gregory Flores M.D. REASON FOR CONSULTATION: Left hip fracture. HISTORY OF PRESENT ILLNESS: This is a 53-year-old female who states that she was attempting to reach for her phone this morning and get out of bed when she became tangled in her bed covers and fell lila ding on her left hip. She was unable to bear weight or ambulate. She was taken to an outside facili ty where she was then transferred to our facility for higher level of care. Currently, at bedside, t he patient reports moderate pain level in her left hip. She does report a history of a similar fract ure to the contralateral hip approximately 10 years ago. She states that she received a partial hip replacement by Dr. Stout at that time. She denies any numbness, tingling or any other injuries at the time of her fall. She normally ambulates without the use of any assistive aids. PAST MEDICAL HISTORY: Significant for diabetes type 1, insulin-dependent since age 8, hyperlipidemi a, hypertension, thyroid disorder. PAST SURGICAL HISTORY: Significant for section, pacemaker defibrillator placement, and chol ecystectomy. SOCIAL HISTORY: Patient lives at home alone. She denies any alcohol, tobacco or illicit drug use. ALLERGIES: Include CIPRO, CODEINE, LISINOPRIL, MORPHINE, SULFA, AMBIEN. PHYSICAL EXAMINATION: VITAL SIGNS: Blood pressure 98/50, pulse of 94, respiratory rate of 18, temperature 98.2. GENERAL: The patient is awake and alert. She is in no acute distress. She has family at bedside. At this point, she has been transferred from the ER to [place] [id number]. She is resting comfortably. HEENT: Head is normocephalic, atraumatic. NECK: Supple. Trachea midline. Breathing is nonlabored. EXTREMITIES: The left lower extremity was examined. Leg lengths appear equal. The patient is able to move toes and ankles in both lower extremities. Capillary refill 2 seconds. Sensation intact dis tally. SKIN: Intact overlying the fracture region of the left hip. Remainder of extremity exam is unremark able. RADIOGRAPHIC FINDINGS: Including views of the pelvis show evidence for a subcapital femoral fracture . There is minimal impaction. ASSESSMENT: Left subcapital femur fracture. PLAN: At this point, we would like to proceed with surgery in order to gain her ambulation purposes back. This is a surgical fracture that I have discussed with the patient and the family. Patient do es have a hemiarthroplasty to the opposite hip. We have discussed doing the same type procedure to t he left side. Patient also has a pacemaker defibrillator. We will further discuss the case with Dr. Flores and discuss surgery for this afternoon. The patient has been n.p.o. since last night. Fam gabe and patient are amenable to surgery and understand risks versus benefits.
--- NOTE | 2018-06-06 14:38 | RAD ---
PORTABLE SEMIUPRIGHT FRONTAL CHEST RADIOGRAPH: DATE: 06/06/18. COMPARISON: 02/24/18. HISTORY: Preoperative patient. FINDINGS: Postoperative clips are noted in the right upper quadrant suggesting prior cholecystectomy. There is a dual-lead AICD inserted via a left subclavian approach, stable. Stable mild increased linear inte rstitial density. No focal consolidation or alveolar edema. IMPRESSION: No acute findings. POS: JAX
--- NOTE | 2018-06-06 14:49 | RAD ---
LEFT HIP TWO VIEWS: 06/06/2018 11:43 a.m. HISTORY: Trauma. Pain. FINDINGS: There is a transverse, mildly impacted fracture of the femoral neck, in the basicervical region. No evidence for dislocation. IMPRESSION: Left femoral neck fracture. POS: JAX
[2018-06-06] MEDS ORDERED: CEFAZOLIN/Water 2 GM/20 ML SYRINGE SLOW IVP SCH (15:00)
[2018-06-06] MEDS ORDERED: Fentanyl 250 MCG/5 ML VIAL ONE (16:50)
[2018-06-06] MEDS ORDERED: CEFAZOLIN/Water 2 GM/20 ML SYRINGE ONE (16:55)
[2018-06-06] MEDS ORDERED: Insulin Regular 300 UNITS/3 ML VIAL ONE (17:05)
[2018-06-06] MEDS ORDERED: Dextrose 5% in Water 1,000 ML IV PRN (18:19)
[2018-06-06] MEDS ORDERED: Ondansetron ODT 4 MG TAB PO PRN (18:19)
[2018-06-06] MEDS ORDERED: hydrALAZINE 20 MG/ML VIAL SLOW IVP PRN (18:19)
[2018-06-06] MEDS ORDERED: Dextrose 50% Abboject 50 ML SYRINGE SLOW IVP PRN ×2 (18:19)
[2018-06-06] MEDS ORDERED: Ondansetron HCl/PF 4 MG/2 ML Vial IVP PRN ×2 (18:19→19:05)
[2018-06-06] MEDS ORDERED: Morphine 4 MG/ML VIAL SLOW IVP PRN (18:19)
[2018-06-06] MEDS ORDERED: Ketorolac Tromethamine 30 MG/ML VIAL IVP SCH (18:30)
[2018-06-06] MEDS ORDERED: Acetaminophen 1,000 MG in Premix Bag 1 BAG IVPB SCH (18:30)
[2018-06-06] MEDS ORDERED: Meperidine HCl/PF 25 MG/ML VIAL SLOW IVP PRN (19:05)
[2018-06-06] MEDS ORDERED: Fentanyl 100 MCG/2 ML VIAL ONE (19:11)
[2018-06-06] MEDS: Sodium Chloride 0.9% 1,000 ML IV SCH (20:11)
--- NOTE | 2018-06-06 20:58 | RAD ---
TWO VIEW LEFT HIP: 06/06/18 INDICATION: Postoperative evaluation. Prior left hip fracture. FINDINGS: Interval placement of a left hip prosthesis with overlying metallic reina. No acute hardware compli cation identified. prosthesis is appropriately aligned. IMPRESSION: Postoperative left hip without evidence of hardware complication. POS: KEEGAN
[2018-06-06] MEDS: CEFAZOLIN/Water 2 GM/20 ML SYRINGE SLOW IVP SCH (21:09)
[2018-06-06] MEDS: Insulin Regular 300 UNITS/3 ML VIAL SC PRN (21:10)
[2018-06-06] MEDS: Famotidine 20 MG TAB PO SCH (21:11)
--- NOTE | 2018-06-06 22:04 | HP ---
DATE OF ADMISSION: 06/06/2018 REQUESTING PHYSICIAN: Navneet Dudley M.D. ATTENDING SURGEON: Kade Alcaraz M.D. CONSULTATION: Orthopedics, Gregory Flores M.D. HISTORY OF PRESENT ILLNESS: The patient is a 53-year-old woman who was in bed this morning when she was reaching for her phone and fell out of her bed, landing on her left hip. The patient h ad immediate discomfort and was unable to ambulate. She was brought to the emergency department, magdi travis, examined and found to have a subcapital femoral neck fracture, at which time we were asked to evaluate the patient for admission and obtain orthopedic consultation. The patient denied any loss of consciousness or syncopal type events prior to her injury and this is her only complaint. ALLERGIES: AMBIEN, CIPRO, CODEINE, COMPAZINE, LISINOPRIL, SULFA. PAST MEDICAL HISTORY: Type 1 diabetes, hypothyroidism, hypertension, cardiomyopathy, kidney stones, gastroesophageal reflux disease, anemia, anxiety and depression. PAST SURGICAL HISTORY: Cholecystectomy, , hysterectomy, pacemaker/defibrillator placement a nd right hip replacement. FAMILY MEDICAL HISTORY: Coronary artery disease and diabetes. PHYSICAL EXAMINATION: VITAL SIGNS: Blood pressure 117/68, heart rate 88, respirations 18, oxygen saturation is 98% on room air and temperature is 98.1. GENERAL: Patient is resting comfortably in bed. She is awake, alert and oriented x3. [place] coma scale is 15. HEENT: Head is normocephalic. Eyes, extraocular movements are intact. PERRLA bilaterally. Ears ar e atraumatic without discharge. Nose, atraumatic with discharge. Oropharynx is clear. NECK: Nontender. Trachea is midline. No JVD. CHEST: Clear to auscultation with good inspiratory and expiratory effort. HEART: Regular rate and rhythm with a notable pacemaker palpated. ABDOMEN: Soft, flat and nontender with hypoactive bowel sounds. Pelvis is stable with left hip tend erness to palpation consistent with her fracture. EXTREMITIES: Neurovascularly intact x4. Pulses are 2+. Capillary refill is less than 2 seconds. N o edema. BACK: By report is atraumatic and nontender. LABORATORY FINDINGS: White blood cell count 12.1, hemoglobin 11.1, hematocrit 33.1, platelets 190,00 0. PT 14, INR 1.0, PTT 25. Sodium 141, potassium 4.0, chloride 103, CO2 28, BUN 18, creatinine 1.07 and glucose 185. LFTs are unremarkable. RADIOGRAPHS: AP pelvis shows, 1. Traumatic, impacted, mildly displaced and minimally angulated subcapital fracture of the left pro ximal femur. 2. Status post right hip replacement. 3. Diffuse osteopenia. Views of the left hip show a left femoral neck fracture. Left tibia and fibula shows no acute findin gs. AP chest shows no acute findings. ASSESSMENT AND PLAN: 1. Status post mechanical fall. 2. Left femoral neck fracture. 3. History of defibrillator/pacemaker. 4. Type 1 diabetes. 5. History of hypertension and coronary artery disease. 6. History of anxiety and depression. 7. History of gastroesophageal reflux disease. 8. History of hypertension. Plan will be to admit the patient to the surgical floor. She has been reviewed by Orthopedics who wo uld like to do her repair today since she has been n.p.o. Postoperatively, we will manage her pain, pulmonary toilet, gastritis prophylaxis, mechanical DVT prophylaxis and we will resume her home meds as soon as possible and likely start chemical VTE prophylaxis tomorrow or the following day at the la test. The evaluation, examination, laboratory and radiographic findings were discussed with Dr. Tuan cooney after this dictation.
[2018-06-06] MEDS: Ketorolac Tromethamine 30 MG/ML VIAL IVP SCH (23:34)
[2018-06-06] MEDS: Acetaminophen 1,000 MG in Premix Bag 1 BAG IVPB SCH (23:36)
[2018-06-07] MEDS: Sodium Chloride 0.9% 1,000 ML IV SCH ×2 (00:33→07:09)
[2018-06-07] MEDS: Acetaminophen 1,000 MG in Premix Bag 1 BAG IVPB SCH (05:24)
[2018-06-07] MEDS: Ketorolac Tromethamine 30 MG/ML VIAL IVP SCH (05:24)
[2018-06-07] MEDS: CEFAZOLIN/Water 2 GM/20 ML SYRINGE SLOW IVP SCH ×2 (05:25→15:52)
[2018-06-07 06:30] LABS: #Lymphocytes 1.7 thou/uL (1.20-3.40); #Monocytes 0.8 thou/uL (0.11-0.59); #Neutrophils 7.9 thou/uL (1.40-6.50); %Basophils 0.2 % (0.0-1.0); %Eosinophils 0.5 % (0.0-10.0); %Lymphocytes 16.3 % (21.0-51.0); %Monocytes 7.2 % (0.0-10.0); %Neutrophils 75.8 % (42.0-75.0); Hemoglobin 9.5 g/dL (12.0-16.0); Mean Corpuscular Hemoglobin 33.6 pg (27.0-31.0); Mean Corpuscular Volume 96.1 fL (78.0-98.0); Mean Platelet Volume 7.4 fL (7.4-10.4); Platelet Count 147 thou/uL (130-400); Red Blood Cell (RBC) Count 2.83 mill/uL (4.20-5.40); White Blood Cell (WBC) Count 10.4 thou/uL (4.8-10.8)
[2018-06-07 07:41] LABS: Calcium 8.6 mg/dL (7.8-10.44); Chloride 105 mmol/L (98-107); Magnesium 1.8 mg/dL (1.6-2.6); Potassium 3.9 mmol/L (3.5-5.1); Sodium 139 mmol/L (136-145)
[2018-06-07 07:42] LABS: Glucose 144 mg/dL (70-105)
[2018-06-07 07:43] LABS: Anion Gap 12 mmol/L (10-20); Carbon Dioxide 26 mmol/L (22-29)
[2018-06-07 07:45] LABS: Calc. Creatinine Clearance 32 mL/min (70-130); Estimated GFR-MDRD 43; Phosphorus 3.2 mg/dL (2.3-4.7)
[2018-06-07 07:46] LABS: BUN (Urea Nitrogen) 17 mg/dL (9.8-20.1)
[2018-06-07] MEDS: Famotidine 20 MG TAB PO SCH (08:51)
--- NOTE | 2018-06-07 10:19 | OP ---
DATE OF SURGERY: 06/06/2018 PREOPERATIVE DIAGNOSIS: Left subcapital femoral neck fracture. POSTOPERATIVE DIAGNOSIS: Left subcapital femoral neck fracture. SURGICAL PROCEDURE: Left hip hemiarthroplasty. ANESTHESIA: General. SURGEON: Gregory Flores M.D. BREAKER OILER: Carmen Hernandez PA-C BLOOD LOSS: Approximately 100 mL IMPLANTS: DePuy Nelson system was used with a size 5 stem, a 28 x 42 mm bipolar cup and a +1.5 head. COMPLICATIONS: None. DRAINS: None. SPECIMEN: None. OUTCOME: Stable hemiarthroplasty. INDICATIONS: The patient is a 53-year-old lady, status post fall from bed, sustaining a left subcapi christy femoral neck fracture. After discussion with patient and her family including risks and benefits , we decided to proceed with hemiarthroplasty. Of note, about 10 years ago, patient also had a simil ar fracture and a hemiarthroplasty was placed and this is still performing well. I believe risks and benefits have been discussed with patient and her family. All questions have been answered. DESCRIPTION OF PROCEDURE: The patient was brought to the operating room and a timeout performed foll owed by induction of general anesthesia. Next, patient was positioned in a right lateral decubitus p osition and a sterile prep and drape was performed of the left lower extremity. Next, a curvilinear incision was made centered over the tip of the greater trochanter. After skin was sharply incised, d issection was carried down bluntly to the underlying tensor fascia and fascia germaine. This was incised in line with the skin incision and reflected anteriorly and posteriorly. The trochanteric bursa was swept off the short external rotators. An elevator was passed under the abductors and then the piri formis identified and released as was the obturator internus and superior and inferior gemellus. Thi s was reflected posteriorly to help protect the sciatic nerve. Next, a T capsulotomy was performed a nd the femoral head was then removed. This was sized to a size 42. An oscillating saw was used to m sergio a femoral neck cut and then canal preparation was performed. The initial canal finder was passed down the shaft followed by the lateralizing reamer. Next, serial T handle awls were passed down the shaft with a size 5 showing relatively good fit. A size 6 would pass; however, she was found to hav e very small proximal diameter of the femur at the level of the calcar. Next, broaching was started at size 3 and continued up to size 5, which gave very good fit and fill proximally. As such, the 5 t rial was left in place and the bipolar cup was assembled and attached to this trial broach which show ed excellent stability with perhaps just a small degree of lengthening; however, it was felt that the broach could not be driven deeper and that we are using the smallest neck. As such, [facility]. The trial components were then removed from the hip. The hip was irrigated wit h 3 liters of normal saline using Pulsavac and then the final size 5 stem was introduced along with t he bipolar cup. The hip was found to have excellent stability in the 90/90 position with neutral abd uction. The leg could be brought in excess of 70 degrees of internal rotation before subluxation occ urred. Next, wound closure was performed. The capsule was reapproximated with #1 Vicryl. The short external rotators were reattached with #1 Vicryl. A #1 Vicryl was also used for the fascia germaine and tensor fascia followed by 0 Vicryl for Vanessa's fascia, 2-0 Vicryl subcutaneously, and reina for t he skin. A Xeroform gauze and tape dressing was applied to the thigh and then patient was transferre d to recovery room in stable condition. There were no complications. Patient tolerated the procedur e well.
[2018-06-07] MEDS ORDERED: traMADol HCl 50 MG TAB PO PRN ×2 (11:26)
[2018-06-07] MEDS ORDERED: Ibuprofen 600 MG TAB PO SCH (11:30)
[2018-06-07] MEDS: Acetaminophen 500 MG TAB PO SCH ×3 (11:57→23:56)
[2018-06-07] MEDS: Ibuprofen 600 MG TAB PO SCH ×2 (15:51→23:56)
[2018-06-07] MEDS ORDERED: HumaLOG 300 UNITS/3 ML VIAL SC SCH ×2 (17:00→23:45)
[2018-06-07] MEDS: Insulin Regular 300 UNITS/3 ML VIAL SC PRN (17:20)
[2018-06-07] MEDS ORDERED: Sodium Chloride 0.9% 500 ML IV SCH ×2 (19:15→23:45)
--- NOTE | 2018-06-07 19:51 | PRG ---
DATE OF SERVICE: 06/07/2018 ATTENDING PHYSICIAN: Dr. Navid Reyes. SUBJECTIVE: Ms. Yoder is a 53-year-old female who fell from her bed, landing on her left hip and daksha taining a left hip subcapital femoral neck fracture. She was admitted one day ago by [facility] . Orthopedic consult was obtained. She was taken to the operating room yesterday for fixation of he r left hip fracture. She is now seen today on the surgical floor. Pain is well controlled. PHYSICAL EXAMINATION: VITAL SIGNS: Temperature 98.1, pulse 83, respirations 16, O2 sat 94% room air, blood pressure 107/65 . CONSTITUTIONAL: Well-nourished, well-developed female lying in bed in no acute distress. HEENT: Atraumatic, normocephalic. CARDIOVASCULAR: Regular rate and rhythm. Heart sounds normal. RESPIRATORY: Bilateral breath sounds clear. No respiratory distress. ABDOMEN: Soft, nontender, nondistended. EXTREMITIES: Moves all extremities. Neurovascularly intact to all extremities. NEUROLOGIC: GCS 15. Awake, alert, oriented x3. LABORATORY DATA: CBC: WBC 10.4, RBC 2.83, hemoglobin 9.5, hematocrit 27.2, platelets 147. Chemistr y: Sodium 139, potassium 3.9, chloride 105, carbon dioxide 26, BUN 17, creatinine 1.30, glucose 144, calcium 8.6, phosphorus 3.2, magnesium 1.8. ASSESSMENT: 1. Status post ground level fall. 2. Left femoral neck fracture. 3. Postoperative day #1 status post left hip hemiarthroplasty. 4. History of defibrillator pacemaker. 5. History of type 1 diabetes. 6. History of hypertension and coronary artery disease. 7. History of anxiety and depression. 8. History of gastroesophageal reflux disease. 9. History of hypertension. PLAN: 1. Continue care on surgical floor. 2. Start physical and occupational therapy. 3. Restart home medications. 4. Continue current pain medications. 5. Sequential compression devices for deep venous thrombosis prophylaxis. Start chemical DVT prophy laxis when okay with Orthopedic Surgery. 6. Discontinue IV fluids. 7. Consistent carbohydrate diet with Supquana shake. The patient was seen and examined with Dr. Reyes who agrees with plan.
[2018-06-07] MEDS: HumaLOG 300 UNITS/3 ML VIAL SC PRN (20:30)
[2018-06-07] MEDS ORDERED: Rosuvastatin 20 MG TAB PO SCH (21:00)
[2018-06-07] MEDS ORDERED: VALSARTAN PO SCH (21:00)
[2018-06-07] MEDS ORDERED: LEVEMIR 18 UNIT SC SCH (21:00)
[2018-06-07] MEDS ORDERED: Insulin Glargine 18 UNITS in Pre-Filled Syringe 1 EACH SC SCH (21:00)
[2018-06-07] MEDS ORDERED: SACUBITRIL PO SCH (21:00)
[2018-06-07] MEDS: Carvedilol 3.125 MG TAB PO SCH (21:46)
[2018-06-07 22:31] LABS: Glucose 415 mg/dL (70-105)
[2018-06-08] MEDS: Ibuprofen 600 MG TAB PO SCH ×2 (05:18→14:36)
[2018-06-08] MEDS: Acetaminophen 500 MG TAB PO SCH ×2 (05:23→11:52)
[2018-06-08] MEDS ORDERED: Levothyroxine Sodium 75 MCG TAB PO SCH (06:00)
[2018-06-08 07:52] LABS: #Eosinphils 0.2 thou/uL (0.0-0.7); #Lymphocytes 1.6 thou/uL (1.20-3.40); #Neutrophils 8.7 thou/uL (1.40-6.50); %Basophils 0.4 % (0.0-1.0); %Eosinophils 1.3 % (0.0-10.0); %Lymphocytes 14.3 % (21.0-51.0); %Monocytes 8.3 % (0.0-10.0); %Neutrophils 75.8 % (42.0-75.0); Hemoglobin 8.6 g/dL (12.0-16.0); Mean Corpuscular HGB CONC 35.1 g/dL (32.0-36.0); Mean Corpuscular Hemoglobin 33.9 pg (27.0-31.0); Mean Corpuscular Volume 96.6 fL (78.0-98.0); Mean Platelet Volume 7.1 fL (7.4-10.4); Platelet Count 124 thou/uL (130-400); RBC Distribution Width 10.8 % (11.5-14.5); Red Blood Cell (RBC) Count 2.54 mill/uL (4.20-5.40); White Blood Cell (WBC) Count 11.5 thou/uL (4.8-10.8)
[2018-06-08 08:03] LABS: Hemoglobin A1c 7.8 % (4.0-6.0)
[2018-06-08 08:18] LABS: Anion Gap 13 mmol/L (10-20); BUN (Urea Nitrogen) 18 mg/dL (9.8-20.1); Calc. Creatinine Clearance 38 mL/min (70-130); Calcium 8.6 mg/dL (7.8-10.44); Carbon Dioxide 22 mmol/L (22-29); Chloride 103 mmol/L (98-107); Estimated GFR-MDRD 52; Glucose 191 mg/dL (70-105); Magnesium 1.7 mg/dL (1.6-2.6); Phosphorus 2.6 mg/dL (2.3-4.7); Potassium 4.1 mmol/L (3.5-5.1); Sodium 134 mmol/L (136-145)
[2018-06-08] MEDS ORDERED: Famotidine 20 MG TAB PO SCH (09:00)
[2018-06-08] MEDS ORDERED: Venlafaxine HCl XR 75 MG CAP PO SCH (09:00)
[2018-06-08] MEDS ORDERED: Furosemide 40 MG TAB PO SCH (09:00)
[2018-06-08] MEDS ORDERED: Spironolactone 25 MG TAB PO SCH (09:00)
[2018-06-08] MEDS ORDERED: Non-Formulary Item 1 EACH (Desvenlafaxine Succinate [Pristiq] 50 MG) PO SCH (09:00)
[2018-06-08] MEDS: Carvedilol 3.125 MG TAB PO SCH (11:53)
[2018-06-08] MEDS: HumaLOG 300 UNITS/3 ML VIAL SC PRN (11:54)
[2018-06-08] MEDS ORDERED: Scopolamine 1.5 mg/72 hour Patch TD SCH (12:00)
[2018-06-08 15:25] VITALS: BP 135/76; TEMP 97.9
== END 2018-06-08 16:26 | DRG 470 ==
LOC: ERS 10:55 → SURG A 13:08
PROVIDERS: ADMIT Surgery; ATTEND Surgery
PROC: 0SRS01Z Replacement of Left Hip Joint, Femoral Surface with Metal Synthetic Substitute, Open Approach (ICD-10-PCS; principal; 2018-06-06)
DX: S72.012A Unspecified intracapsular fracture of left femur, initial encounter for closed fracture (principal); I42.9 Cardiomyopathy, unspecified; Z88.5 Allergy status to narcotic agent; Z88.1 Allergy status to other antibiotic agents; Z88.8 Allergy status to other drugs, medicaments and biological substances; Z88.2 Allergy status to sulfonamides; E03.9 Hypothyroidism, unspecified; I10 Essential (primary) hypertension; E10.9 Type 1 diabetes mellitus without complications; K21.9 Gastro-esophageal reflux disease without esophagitis; F41.9 Anxiety disorder, unspecified; F32.9 Major depressive disorder, single episode, unspecified; Z96.641 Presence of right artificial hip joint; I25.10 Atherosclerotic heart disease of native coronary artery without angina pectoris; W06.XXXA Fall from bed, initial encounter; Z95.810 Presence of automatic (implantable) cardiac defibrillator
CPT/HCPCS: 36415; 36416; 71045; 72170; 80048; 83036; 83735; 84100; 85025; 93005; 96374; 96375; G8978-GP-CL; G8979-GP-CI; G8987-GO-CK; G8988-GO-CI; J0131; J1170; J1815; J1885; J2001; J2270; J2405; J2704; J3010

== ENCOUNTER 2020-05-04 22:34 | Emergency (ER) | payer MEDICARE, MEDICAID ==
[2020-05-04] MEDS ORDERED: Fentanyl 100 MCG/2 ML VIAL ONE (23:10)
== END 2020-05-05 00:05 | disposition home or self-care (01) ==
LOC: ERS 22:34
DX: S52.521A Torus fracture of lower end of right radius, initial encounter for closed fracture (principal); S72.001A Fracture of unspecified part of neck of right femur, initial encounter for closed fracture; E10.9 Type 1 diabetes mellitus without complications; E03.9 Hypothyroidism, unspecified; I10 Essential (primary) hypertension; Z87.442 Personal history of urinary calculi; D64.9 Anemia, unspecified; F41.9 Anxiety disorder, unspecified; F32.9 Major depressive disorder, single episode, unspecified; Z96.641 Presence of right artificial hip joint; Z96.642 Presence of left artificial hip joint; Z79.899 Other long term (current) drug therapy; W19.XXXA Unspecified fall, initial encounter
CPT/HCPCS: 96374; J3010

== ENCOUNTER 2020-05-06 18:03 | Observation (INO) | payer MEDICARE, MEDICAID ==
[2020-05-06] MEDS ORDERED: Fentanyl 100 MCG/2 ML VIAL ONE (19:06)
[2020-05-06] MEDS ORDERED: Ondansetron PF 4 MG/2 ML Vial ONE (19:07)
--- NOTE | 2020-05-06 20:10 | RAD ---
AP PELVIS: History: Injury, fall. Comparison: 2018 FINDINGS: There are bilateral hip prostheses. The prostheses appear adequately positioned and aligned. Pelvis a ppears intact. No acute fracture identified. POS: AGW
--- NOTE | 2020-05-06 20:11 | RAD ---
RIGHT HIP TWO VIEWS: History: Fall, injury, pain. FINDINGS: There is a right hip prosthesis. Components appear adequately positioned. No acute fracture identifie d. POS: AGW
--- NOTE | 2020-05-06 21:08 | RAD ---
AP CHEST: History: Fall on Wednesday FINDINGS: Lungs appear clear. No infiltrate. AICD leads appear adequately positioned. IMPRESSION: No acute process. POS: AGW
[2020-05-06 21:18] LABS: #Eosinphils 0.1 thou/uL (0.0-0.7); #Lymphocytes 2.2 thou/uL (1.20-3.40); #Monocytes 0.7 thou/uL (0.11-0.59); #Neutrophils 8.9 thou/uL (1.40-6.50); %Basophils 0.3 % (0.0-1.0); %Eosinophils 0.7 % (0.0-10.0); %Lymphocytes 18.1 % (21.0-51.0); %Monocytes 6.2 % (0.0-10.0); %Neutrophils 74.8 % (42.0-75.0); Hemoglobin 9.9 g/dL (12.0-16.0); Mean Corpuscular HGB CONC 33.7 g/dL (32.0-36.0); Mean Corpuscular Hemoglobin 32.5 pg (27.0-31.0); Mean Corpuscular Volume 96.5 fL (78.0-98.0); Mean Platelet Volume 7.5 fL (7.4-10.4); Platelet Count 164 thou/uL (130-400); RBC Distribution Width 11.3 % (11.5-14.5); Red Blood Cell (RBC) Count 3.05 mill/uL (4.20-5.40); White Blood Cell (WBC) Count 11.9 thou/uL (4.8-10.8)
--- NOTE | 2020-05-06 21:26 | CT ---
CT BRAIN WITHOUT CONTRAST: Indications: Fall Comparison: 07-02-16 FINDINGS: There is no evidence of intracranial hemorrhage or mass. No evidence of infarct. Sinuses are clear. IMPRESSION: No acute abnormality. POS: AGW
[2020-05-06 21:39] LABS: ALT (SGPT) 283 U/L (8-55); AST (SGOT) 210 U/L (5-34); Albumin 3.9 g/dL (3.5-5.0); Alkaline Phosphatase 121 U/L (40-110); Anion Gap 13 mmol/L (10-20); BUN (Urea Nitrogen) 20 mg/dL (9.8-20.1); Bilirubin, Total 0.4 mg/dL (0.2-1.2); Calc. Creatinine Clearance 0 mL/min (70-130); Calcium 9.1 mg/dL (7.8-10.44); Carbon Dioxide 27 mmol/L (22-29); Chloride 102 mmol/L (98-107); Estimated GFR-MDRD 50; Globulin 2.9 g/dL (2.4-3.5); Glucose 148 mg/dL (70-105); Potassium 3.6 mmol/L (3.5-5.1); Protein, Total 6.8 g/dL (6.0-8.3); Sodium 138 mmol/L (136-145)
[2020-05-06 22:01] LABS: CKMB 3.4 ng/mL (0-6.6)
[2020-05-06] MEDS ORDERED: HYDROcodone/Acetaminophen 10/325 mg Tablet ONE (22:39)
[2020-05-06] MEDS ORDERED: Sodium Chloride 0.9% 1,000 ML IV SCH (23:45)
[2020-05-06] MEDS ORDERED: Bisacodyl 5 MG TAB PO PRN (23:47)
[2020-05-06] MEDS ORDERED: Calcium Carbonate 500 MG ChewTAB PO PRN (23:47)
[2020-05-06] MEDS ORDERED: Senokot S 8.6-50 MG TAB PO PRN (23:47)
[2020-05-06] MEDS ORDERED: HYDROcodone/Acetaminophen 5/325 mg Tablet PO PRN ×2 (23:47)
[2020-05-06] MEDS ORDERED: Fentanyl 100 MCG/2 ML VIAL SLOW IVP PRN (23:50)
[2020-05-06] MEDS ORDERED: Aspirin 325 mg Enteric Coated Tablet PO SCH (23:59)
[2020-05-07] MEDS ORDERED: Aspirin 325 MG TAB ONE (00:07)
[2020-05-07] MEDS ORDERED: Ketorolac Tromethamine 30 MG/ML VIAL ONE (00:15)
[2020-05-07] MEDS: Ketorolac Tromethamine 30 MG/ML VIAL IVP SCH ×2 (00:17→06:32)
[2020-05-07] MEDS ORDERED: Dextrose 5% in Water 1,000 ML IV PRN (00:23)
[2020-05-07] MEDS ORDERED: HumaLOG 300 UNITS/3 ML VIAL SC PRN (00:23)
[2020-05-07] MEDS ORDERED: Dextrose 50% Abboject 50 ML SYRINGE SLOW IVP PRN (00:23)
--- NOTE | 2020-05-07 00:51 | HP ---
PRIMARY CARE PHYSICIAN: Bertha Reyes MD CHIEF COMPLAINT: Right hip and right arm pain. HISTORY OF PRESENT ILLNESS: The patient is a 54-year-old female with a past medical history significant for bilateral hip replacements, cardiomyopathy, hypertension , hypothyroidism, and diabetes type 1 who presents to the ER with the above complaint. The patient had a mechanical fall on Wednesday outside of the [employer] while pushing a shopping cart. The patient fell, impacting her right arm and right hip. The patient called EMS and was taken to the [place] ER. There, the patient was diagnosed with a right distal radius fracture and a right femur fracture. The patient was transferred to [facility] for possible surgical intervention by Dr. Perez. Dr. Perez at that time reviewed the x-rays and determined that no surgical intervention was necessary. The patient was cleared for discharge home with a prescription for pain medications and weightbearing activities as tolerated. Since discharge, the patient reports uncontrolled pain. She is not able to ambulate at home. She had to have her sister come and stay with her. She feels that she is bed-bound. She is not even able to go to the restroom on her own. She reports that she did not take any pain medications or fill the prescription because she had fear of being constipated, which she has had problems with in the past. Today, the pain was so intense that she had her sister go to the pharmacy to fill the prescription for pain medications, and the pharmacist told her that if she took those pain medications along with her regular home medications that she could place her life at risk, so the patient called EMS and was brought to the ER. Denies any fever or chills. Denies any chest pain or SOB. Denies vomting or diarrhea or dysuria. In the ER, the patient presented with a normal blood pressure, normal heart rate, normal respirations, normal O2 sats, afebrile, 10/10 pain. X-rays of the pelvis, right hip, and chest were negative for any acute findings. Brain CT was negative for any acute process. Initial troponin 0.051, TSH of 9.4325, CK-MB of 3.4. The patient also had elevated LFTs. Total bilirubin was 0.4, but the AST was 210, ALT 283, alkaline phosphatase 121. The patient was given Stout 10/325, fentanyl 50 mcg, and Zofran, and her pain is currently under control. She is resting comfortably in bed. PAST MEDICAL HISTORY: 1. Type 1 diabetes, on insulin. 2. Hypothyroidism. 3. Hypertension. 4. Anxiety and depression. 5. Cardiomyopathy. 6. GERD. 7. Nephrolithiasis. 8. Anemia. PAST SURGICAL HISTORY: 1. Pacemaker AICD. 2. Cholecystectomy. 3. . SOCIAL HISTORY: The patient lives at home alone. No history of smoking, illicit drug use, or alcohol intake. FAMILY HISTORY: Noncontributory to this case. ALLERGIES: 1. PROCHLORPERAZIINE. 2. SULFA. 3. CIPROFLOXACIN. 4. CODEINE. 5. COMPAZINE. 6. AMBIEN. HOME MEDICATIONS: The patient was unable to confirm home dosage at bedside. REVIEW OF SYSTEMS: All review of systems is negative unless otherwise stated in the HPI. PHYSICAL EXAMINATION: VITAL SIGNS: Temperature 99 degrees, blood pressure 123/83, pulse 84, respirations 19, SpO2 99% on room air. Pain currently 2/10. CONSTITUTIONAL: The patient is alert and oriented to person, place, and time. Uncomfortable. No acute distress. HEAD: Atraumatic and normocephalic. EYES: Extraocular muscles are intact. PERRLA. NECK: Full range of motion. No cervical spinous tenderness. No JVD. No cervical adenopathy. ENT: Nares patent bilaterally. Oropharynx is clear. Uvula midline. Tacky mucous membranes. No oral lesions. RESPIRATORY/CHEST: Respirations even and unlabored. Clear to auscultation. No rhonchi, wheezes, or rales. CARDIOVASCULAR: S1 and S2. Regular rate and rhythm. No murmurs, rubs, or gallops. ABDOMEN: Abdomen is soft, nontender. Active bowel sounds. No guarding. No rigidity. No rebound tenderness. EXTREMITIES: Upper extremities; the right upper extremity has a splint in place. The patient moves her arms full range of motion. Strength is normal. Right fish straightener is decreased. Sensation is intact. Palpable radial pulses. Lower extremities; right lower extremity has decreased range of motion secondary to pain. Sensation is intact bilaterally. Strength decreased secondary to pain on the right. Palpable pedal pulses. No swelling. The left extremity is normal. NEUROLOGIC: The patient is alert and oriented to person, place, and time. Follows commands. Unable to weightbear secondary to pain of her right hip. LABORATORY DATA AND DIAGNOSTICS: X-ray of pelvis: There is evidence of a subtle cortical fracture in the proximal femur just below the greater trochanter, seen laterally. There is bilateral hip prosthesis, appeared adequately positioned and aligned. Right hip x-ray, there is an addendum, further review reveals linear lucency in the proximal femur laterally just inferior to greater trochanter consistent with a fracture through the cortex of the proximal femur. Chest x-ray was negative for any acute cardiopulmonary process. CT of brain was negative for any acute intracerebral process. EKG, normal sinus rhythm with prolonged QT. Sodium 138, potassium 3.6, chloride 102, carbon dioxide 27, BUN 20, creatinine 1.12, glucose 148. Total bilirubin 0.4, AST 210, ALT 283, alkaline phosphatase 121. TSH 9.4325. WBCs 11.9, hemoglobin 9.9, hematocrit 29.4, platelets 164. IMPRESSION AND PLAN: 1. Intractable pain secondary to right femur fracture and distal radial fracture. We will admit the patient to the telemetry for observation status. Expected length of stay less than 2 midnights. On exam, the patient is resting comfortably with pain adequately controlled on Stout and fentanyl. We will hold the Stout for now given the patient's elevated LFTs. We will continue fentanyl IV push. We will start Toradol scheduled. We will consult Physical Therapy and Ortho. 2. Elevated troponin. The patient denies any chest pain or shortness of breath. Initial troponin 0.051, CK-MB of 3.4. EKG was normal sinus rhythm with a prolonged QT. We will continue to trend troponins. The patient has a history of cardiomyopathy. We will get a BNP. Chest x-ray is negative for any acute process. We will give full-dose aspirin and continue baby aspirin in a.m. 3. Elevated LFTs, unknown etiology. The patient is asymptomatic in terms of abdominal pain, nausea, vomiting, and diarrhea. The patient does report that she has, in the past when she was , had elevated liver enzymes, had a full workup, and was found to be unremarkable. We will recheck levels in the a.m. We will avoid hepatotoxic medications. 4. Diabetes, type 1. The patient reports taking Levemir 18 units at night. We will continue the patient's Levemir and start mild sliding scale with Accu-Cheks a.c. and h.s. 5. Hypothyroidism, the patient presented with a TSH of 9.4325. The patient takes levothyroxine 75 mcg. We will restart home medication. We will check a free T4. 6. Hypertension, the patient presented with a normal blood pressure. We will continue to monitor blood pressure. We will restart the patient's home dose of Coreg, Entresto, and Lasix when reconciled by nursing. 7. Anxiety and depression. The patient reports taking Pristiq unknown dose. When reconciled, we will restart home medication. 8. Acid reflux, the patient takes Protonix at home. We will restart home medication when reconciled. 9. Heparin for deep venous thrombosis prophylaxis. Protonix for gastrointestinal prophylaxis. The patient is a full code. Her sister, Keesha, is our contact, [phone]. 10. Discussed case with Dr. Dougherty. Job ID: [id number] [id number]
[2020-05-07 01:19] LABS: Troponin I 0.073 ng/mL (< 0.028)
[2020-05-07 03:21] LABS: ALT (SGPT) 253 U/L (8-55); AST (SGOT) 168 U/L (5-34); Albumin 3.8 g/dL (3.5-5.0); Alkaline Phosphatase 119 U/L (40-110); Anion Gap 16 mmol/L (10-20); BUN (Urea Nitrogen) 21 mg/dL (9.8-20.1); Bilirubin, Total 0.4 mg/dL (0.2-1.2); Calc. Creatinine Clearance 0 mL/min (70-130); Calcium 8.9 mg/dL (7.8-10.44); Carbon Dioxide 24 mmol/L (22-29); Cardiac Risk 2.1 (Less than 4.5); Chloride 99 mmol/L (98-107); Cholesterol 139 mg/dl (< 200 Desired); Estimated GFR-MDRD 43; Gamma GT (GGT) 130 U/L (9-36); Globulin 2.9 g/dL (2.4-3.5); Glucose 373 mg/dL (70-105); HDL Cholesterol 66 mg/dL (>60 Neg Risk); LDL Cholesterol, Calculated 60 mg/dL; Potassium 4.2 mmol/L (3.5-5.1); Protein, Total 6.7 g/dL (6.0-8.3); Sodium 135 mmol/L (136-145); Triglycerides 65 mg/dL (Less than 150)
[2020-05-07 03:24] LABS: Troponin I 0.059 ng/mL (< 0.028)
[2020-05-07 04:05] LABS: HBCM Index 0.08 S/CO (0-0.79); HBSAg Index 0.19 S/CO (0-0.99); Hep A IgM AB Non-Reactive (NonReactive); Hep A IgM S/CO 0.16 S/CO (0-0.79); Hep B Surf Ag Non-Reactive S/CO (NonReactive); Hep C IgG Ab Non-Reactive (NonReactive); Hep C Index 0.16 S/CO (0-0.79); Hepatitis B Core IgM Abs Non-Reactive (NonReactive)
--- NOTE | 2020-05-07 07:32 | ULT ---
EXAM: US Gallbladder RUQ CLINICAL HISTORY: Elevated liver function test. COMPARISON: None. FINDINGS: Pancreas: Head and proximal pancreatic body have a normal echotexture. Liver:Hepatic parenchyma has a normal echotexture. No hepatic masses or intrahepatic biliary dilatati on. Right hepatic lobe: 13.9 cm Gallbladder: Surgically absent Layton's sign:Not applicable Portal Vein: Patent. Appropriate directional flow Bile ducts: 0.8 cm common bile duct diameter Right kidney: No hydronephrosis. Right kidney measures 4.3 x 8.4 x 4.4 cm in length. IMPRESSION: No acute abnormality.
--- NOTE | 2020-05-07 07:48 | RAD ---
XR Wrist Rt 2 View History: Fall. Fracture. Comparison: None. Findings: Nondisplaced transversely oriented distal radius fracture. Nondisplaced fracture through th e ulnar styloid process. Exam is limited due to only 2 views. Impression: 1. Nondisplaced transversely oriented distal radial metaphyseal fracture with possible intra-articula r extension of the lunate fossa. 4 views recommended if clinically warranted. 2. Nondisplaced ulnar styloid tip fracture.
[2020-05-07 08:24] LABS: #Eosinphils 0.1 thou/uL (0.0-0.7); #Monocytes 0.8 thou/uL (0.11-0.59); #Neutrophils 6.3 thou/uL (1.40-6.50); %Basophils 0.3 % (0.0-1.0); %Eosinophils 1.6 % (0.0-10.0); %Lymphocytes 21.5 % (21.0-51.0); %Monocytes 8.4 % (0.0-10.0); %Neutrophils 68.1 % (42.0-75.0); Hemoglobin 9.7 g/dL (12.0-16.0); Mean Corpuscular Hemoglobin 32.7 pg (27.0-31.0); Mean Corpuscular Volume 96.2 fL (78.0-98.0); Mean Platelet Volume 8.6 fL (7.4-10.4); Platelet Count 109 thou/uL (130-400); Platelet Morphology Comment Appears Decreased; RBC Distribution Width 11.2 % (11.5-14.5); RBC Morphology Normal; Red Blood Cell (RBC) Count 2.97 mill/uL (4.20-5.40); White Blood Cell (WBC) Count 9.2 thou/uL (4.8-10.8)
--- NOTE | 2020-05-07 08:29 | PDOC.HOSPP ---
- Subjective Encounter Date: 05/07/20 Encounter Time: 12:40 Subjective: Patient with improved pain control. Does have regular panic attacks, worse since fall and in pain. Also worried about her liver tests, which have been high on and off before especially when , but not worked up since then. - Objective Result Diagrams: 05/07/20 06:57 05/07/20 02:44 Additional Labs: Accuchecks 05/07/20 05/06/20 01:59 19:59 POC Glucose 338 H 121 H Hospitalist ROS - Review of Systems Constitutional: denies: fever, chills Respiratory: denies: cough, shortness of breath Cardiovascular: denies: chest pain, palpitations Gastrointestinal: denies: nausea, vomiting, abdominal pain, diarrhea, constipation Musculoskeletal: reports: arm pain, leg pain - Medication Medications: Active Medications Generic Name Dose Route Start Last Admin Trade Name Freq PRN Reason Stop Dose Admin Sodium Chloride 1,000 mls @ 50 mls/hr 05/06/20 23:45 05/07/20 00:10 Normal Saline 0.9% IV 1,000 mls .Q20H MICHAEL Administration Ketorolac Tromethamine 15 mg 05/06/20 23:59 05/07/20 06:32 Toradol IVP 05/11/20 23:59 Not Given Q6HR MICHAEL - Exam General Appearance: NAD, awake alert ENT: moist mucosa Heart: RRR, no murmur, no gallops, no rubs Respiratory: CTAB, no wheezes, no rales, no ronchi Gastrointestinal: soft, non-tender, non-distended, normal bowel sounds Extremities - other findings: splint on right wrist Psychiatric: normal affect, normal behavior, A&O x 3 Hosp A/P (1) Right femoral fracture Code(s): S72.91XA - UNSP FRACTURE OF RIGHT FEMUR, INIT FOR CLOS FX Status: Acute (2) Fracture of right distal radius Code(s): S52.501A - UNSP FRACTURE OF THE LOWER END OF RIGHT RADIUS, INIT Status: Acute (3) Elevated liver enzymes Code(s): R74.8 - ABNORMAL LEVELS OF OTHER SERUM ENZYMES Status: Acute (4) Diabetes mellitus type 1 Status: Chronic (5) Dyslipidemia Code(s): E78.5 - HYPERLIPIDEMIA, UNSPECIFIED Status: Chronic (6) GERD (gastroesophageal reflux disease) Code(s): K21.9 - GASTRO-ESOPHAGEAL REFLUX DISEASE WITHOUT ESOPHAGITIS Status: Chronic (7) HTN (hypertension) Code(s): I10 - ESSENTIAL (PRIMARY) HYPERTENSION Status: Chronic (8) Hypothyroidism Code(s): E03.9 - HYPOTHYROIDISM, UNSPECIFIED Status: Chronic (9) Anxiety and depression Code(s): F41.9 - ANXIETY DISORDER, UNSPECIFIED; F32.9 - MAJOR DEPRESSIVE DISORDER, SINGLE EPISODE, UNSPECIFIED Status: Chronic (10) Urinary retention Code(s): R33.9 - RETENTION OF URINE, UNSPECIFIED Status: Acute - Plan Ortho evaluation, PT/OT, approved for rehab so will send over now. Unable to void this AM, garcia placed. LFTs up but bilirubin and albumin normal, liver U/S normal, needs GI f/u after finishes with rehab.
[2020-05-07] MEDS ORDERED: traMADol HCl 50 MG TAB PO PRN ×2 (08:32)
[2020-05-07] MEDS ORDERED: Levothyroxine Sodium 75 MCG TAB PO SCH (08:45)
[2020-05-07] MEDS ORDERED: Venlafaxine HCl XR 75 MG CAP PO SCH (09:00)
[2020-05-07] MEDS ORDERED: Pantoprazole 40 MG VIAL IVP SCH (09:00)
[2020-05-07] MEDS ORDERED: Heparin 5,000 UNITS/ML VIAL SC SCH (09:00)
[2020-05-07] MEDS ORDERED: Aspirin 81 mg Enteric Coated Tablet PO SCH (09:00)
[2020-05-07] MEDS ORDERED: Scopolamine 1.5 mg/72 hour Patch TD SCH (09:00)
[2020-05-07] MEDS ORDERED: Spironolactone 25 MG TAB PO SCH (09:00)
[2020-05-07] MEDS ORDERED: Carvedilol 3.125 MG TAB PO SCH (09:00)
--- NOTE | 2020-05-07 09:25 | CON ---
DATE OF CONSULTATION: This is Frankie Woodall PA-C dictating a report for Gregory Flores MD. HISTORY OF PRESENT ILLNESS: We were asked by the ER to see the patient. The patient was seen on Wednesday in [place] and then was sent to our facility. Apparently, she sustained a right greater trochanteric nondisplaced fracture and a right wrist fracture, which I do not have any images to review. [facility] [place] [facility] and thought there was a flat spot and inadvertently walked off a curb, the curb tipped, she fell. She hit her hip, her wrist on the right, and did hit her head, but no loss of consciousness that she believes. Hip was performed by Dr. Stout quite a long time ago. The patient states she has very poor health and is on disability for this health. The patient has not been able to walk and she is struggling extensively with pain. Talking with the patient, she is able to move her legs, rolling in and out does not have a lot of pain. She is just unable to weightbear on that right side. I asked the patient why she had a wrist brace on and she said there was a fracture. Again, I emphasized there were no images to review. The patient is sitting on a gurney in room 17, eating breakfast, and appears to be quite comfortable and in no acute distress. PAST MEDICAL HISTORY: Positive for diabetes, hypothyroidism, hypertension, cardiomyopathy, kidney stones, pacemaker defibrillator, GERD, nephrolithiasis, and anemia. PAST SURGICAL HISTORY: Cholecystectomy, , pacemaker defibrillator placement, bilateral hips. PSYCHIATRIC HISTORY: Anxiety, depression. SOCIAL HISTORY: She does live alone. No alcohol, nicotine, or drug use. Family is around, but not close by. ALLERGIES: QUITE EXTENSIVE. SHE IS ALLERGIC TO AMBIEN, CIPRO, CODEINE, COMPAZINE, LISINOPRIL, MORPHINE, PROCHLORPERAZINE, SULFA, ZOLPIDEM. CURRENT MEDICATIONS: 1. Trazodone. 2. Pristiq. 3. Carvedilol. 4. Lantus. 5. Levothyroxine. 6. Lasix. 7. Entresto. 8. Lorazepam. 9. Ultram. FAMILY HISTORY: For this particular event is noncontributory. REVIEW OF SYSTEMS: She appears quite comfortable right now. She is again on a gurney in room 17, eating breakfast, and in no acute distress. Denies any chest pain or shortness of breath, any bowel or bladder issues. Rest of review of systems is negative. PHYSICAL EXAMINATION: GENERAL: Well-nourished female. Speech clear. Affect pleasant. Answers questions appropriately. She is alert and oriented x3. She is in no acute distress. HEENT: Face symmetric. Tongue midline. EXTREMITIES: Upper extremities; equal size, shape, symmetry. Normal bulk and tone. It is noted she has a wrist brace on her right wrist. Her movement assembler strengths are equal. Her sensations are equal. In the brace, she does not seem to have a lot of pain. I loosened it and flex and extend the wrist and it is moderately tender and she is also tender over the medial and lateral area of the wrist. Splint brace reapplied. Respirations 16. No acute distress. Pelvis, no pain with rocking. I moved her hips in and out, a little bit of pain on the right and nothing on the left. More point tenderness over the lateral hip. Movement from the knees down is appropriate and equal sensations. DP and PT pulses are equal. No sensation loss to the lower extremities. ASSESSMENT: 1. Fall this past Wednesday. 2. Wrist fracture. Right greater trochanter fracture nondisplaced. X-rays show the above stem in the right hip appears intact. There are no lucencies surrounding the stem, just a greater trochanter fracture. Wrist, I have no images yet. We will order to get these soon. PLAN: I would like to get her set up with Physical Therapy and Trauma. Can admit the patient for medicine. Take care of her medical issues with therapy. Depending on the wrist fracture, she probably need a platform walker and some pain control. The patient understands the plan. Again, she appears quite comfortable, but I ordered no therapy. We will need to start getting her move in and she will probably need Case Management for placement issues. Job ID: [id number]
[2020-05-07] MEDS ORDERED: Pantoprazole 40 MG VIAL ONE (11:08)
[2020-05-07] MEDS ORDERED: Aspirin Chewable 81 MG TAB ONE (11:08)
[2020-05-07] MEDS ORDERED: HumaLOG 300 UNITS/3 ML VIAL ONE (11:08)
[2020-05-07] MEDS: HumaLOG 300 UNITS/3 ML VIAL SC PRN ×2 (11:46→12:57)
--- NOTE | 2020-05-07 20:53 | DIS ---
DATE OF ADMISSION: 05/06/2020 DATE OF DISCHARGE: 05/07/2020 PRIMARY CARE PHYSICIAN: Bertha Reyes MD REASON FOR ADMISSION: Uncontrolled pain from right radial and right femoral fractures. DIAGNOSES AT DISCHARGE: 1. Distal right radius fracture, closed. 2. Right femoral fracture, closed and nondisplaced. 3. Elevated liver function tests. 4. Diabetes mellitus, type 1. 5. Dyslipidemia. 6. Gastroesophageal reflux disease. 7. Hypertension. 8. Hypothyroidism. 9. Anxiety and depression with panic attacks. 10. Urinary retention, acute. PROCEDURES PERFORMED: 1. Right hip x-rays revealing a linear lucency in the proximal femur laterally just inferior to the greater trochanter consistent with a fracture to the cortex of the proximal femur only seen on the AP projection. There is a right hip prosthesis. 2. X-ray of pelvis with the same findings. 3. CT of the brain without acute abnormality. 4. Right upper quadrant ultrasound showing normal liver, normal gallbladder, normal bile ducts, no abnormalities. 5. Right wrist x-ray showing a nondisplaced transversely oriented distal radial metaphyseal fracture with possible intra-articular extension of the lunate fossa and a nondisplaced ulnar styloid tip fracture. CONSULTATIONS: Orthopedics, Dr. Floers. SUMMARY OF HOSPITAL COURSE: This is a 54-year-old female with a history of previous bilateral hip replacements, diabetes, and anxiety with panic attacks. She had a mechanical fall two days prior impacting her right arm and right hip. She was taken to our emergency room, where she was diagnosed with fractures. Dr. Perez was consulted to determine the patient did not need surgical intervention and she was discharged home with a prescription for pain medicines and weightbearing activities as tolerated. The patient was reluctant to use the pain medicines due to history of constipation within the past. She had worsening and uncontrolled pain at home and eventually tried to get her medicines filled, but was warned by the pharmacist that it might be too strong for her, so she came into the emergency room. She was noted in the emergency room to have elevated liver function tests, which she has had with her previous with a normal biopsy of the liver at that time and has had them intermittently up since then. Due to elevations, she had a normal right upper quadrant ultrasound done and Tylenol containing medications were held. She was given some fentanyl and then started on tramadol and had improvement in her pain. Orthopedics did see her in the emergency room and recommended a platform walker along with pain control, as well as physical and occupational therapy. The patient was evaluated by Rehab and she was accepted to [facility] and she is being discharged there now. Of note, the patient was put on heart healthy diet in the emergency room and she got Frisian toast this morning and it spiked her blood sugar up to 500. She was asymptomatic at that time. Subcu insulin is being switched to diabetic diet. She also reports that she has problems with her teeth and can only eat mechanical soft diet. DISCHARGE MANAGEMENT: Discharged to inpatient rehab. ACTIVITY: As tolerated. DIET: Diabetic diet with mechanical soft diet. THERAPY: Occupational and physical therapy. FOLLOWUP: Follow up with Dr. Reyes and with GI after discharge from Rehab for her elevated liver function tests. DISCHARGE MEDICATIONS: 1. Aspirin 81 mg twice a day. 2. Dulcolax as needed. 3. Tums as needed. 4. Carvedilol 3.125 mg twice a day. 5. Clonazepam 2 mg at night. 6. Pristiq 50 mg daily. 7. Heparin 5000 units subcu twice a day. 8. Lantus 18 units subcu at night. 9. Toradol IV as needed for pain. 10. Levothyroxine 75 mcg daily. 11. Protonix 40 mg daily. 12. Crestor 20 mg at night. 13. Entresto 24/26 mg 0.5 tablets twice a day. 14. Scopolamine patch 1.5 mg transdermal q.3 days. 15. Senokot two tablets at night daily along with Senokot-S 2 tablets twice a day as needed for constipation. 16. Spironolactone 25 mg daily. 17. Tramadol as needed for pain. 18. Trazodone 100 mg at night. Job ID: [id number]
[2020-05-07] MEDS ORDERED: traZODone HCl 50 MG TAB PO SCH (21:00)
[2020-05-07] MEDS ORDERED: LEVEMIR 18 UNIT SC SCH (21:00)
[2020-05-07] MEDS ORDERED: Insulin Glargine 18 UNITS in Pre-Filled Syringe 1 EACH SC SCH (21:00)
[2020-05-07] MEDS ORDERED: clonazePAM 1 MG TAB PO SCH (21:00)
[2020-05-07] MEDS ORDERED: Senokot 8.6 MG TAB PO SCH (21:00)
[2020-05-07] MEDS ORDERED: Rosuvastatin 20 MG TAB PO SCH (21:00)
[2020-05-08] MEDS ORDERED: Levothyroxine Sodium 75 MCG TAB PO SCH (06:00)
== END 2020-05-07 13:08 ==
LOC: ERS 18:03 → ERHOLD 23:10
PROVIDERS: ADMIT Internal Medicine; ATTEND Internal Medicine
DX: S52.501A Unspecified fracture of the lower end of right radius, initial encounter for closed fracture (principal); S72.91XA Unspecified fracture of right femur, initial encounter for closed fracture; E10.9 Type 1 diabetes mellitus without complications; E03.9 Hypothyroidism, unspecified; I10 Essential (primary) hypertension; F41.0 Panic disorder [episodic paroxysmal anxiety]; F32.9 Major depressive disorder, single episode, unspecified; I42.9 Cardiomyopathy, unspecified; K21.9 Gastro-esophageal reflux disease without esophagitis; D64.9 Anemia, unspecified; R33.9 Retention of urine, unspecified; Z79.4 Long term (current) use of insulin; Z79.82 Long term (current) use of aspirin; Z79.899 Other long term (current) drug therapy; Z88.1 Allergy status to other antibiotic agents; Z88.2 Allergy status to sulfonamides; Z88.5 Allergy status to narcotic agent; Z88.8 Allergy status to other drugs, medicaments and biological substances; Z95.810 Presence of automatic (implantable) cardiac defibrillator
CPT/HCPCS: 36415; 36416; 70450; 71045; 72170; 76705; 80053; 80061; 80074; 82553; 82977; 83735; 83880; 84439; 84443; 84484; 85025; 93005; 96374; 96375; C9113; G0378; J1885; J2405; J3010

== ENCOUNTER 2020-10-22 07:06 | Emergency (ER) | payer MEDICARE, MEDICAID ==
[2020-10-22 08:00] LABS: #Basophils 0.1 thou/uL (0.0-0.2); #Eosinphils 0.3 thou/uL (0.0-0.7); #Lymphocytes 2.5 thou/uL (1.20-3.40); #Monocytes 0.6 thou/uL (0.11-0.59); #Neutrophils 4.7 thou/uL (1.40-6.50); %Basophils 0.9 % (0.0-1.0); %Eosinophils 3.3 % (0.0-10.0); %Lymphocytes 30.4 % (21.0-51.0); %Monocytes 7.1 % (0.0-10.0); %Neutrophils 58.3 % (42.0-75.0); Hemoglobin 11.2 g/dL (12.0-16.0); Mean Corpuscular HGB CONC 34.4 g/dL (32.0-36.0); Mean Corpuscular Hemoglobin 32.4 pg (27.0-31.0); Mean Corpuscular Volume 94.3 fL (78.0-98.0); Mean Platelet Volume 7.5 fL (7.4-10.4); Platelet Count 164 thou/uL (130-400); RBC Distribution Width 10.9 % (11.5-14.5); Red Blood Cell (RBC) Count 3.45 mill/uL (4.20-5.40); White Blood Cell (WBC) Count 8.1 thou/uL (4.8-10.8)
--- NOTE | 2020-10-22 08:55 | RAD ---
PORTABLE CHEST: HISTORY: Chest pain. FINDINGS: Lung odom appear clear of infiltrate. Heart and mediastinum appear normal. AICD leads are again n oted. No significant change when compared to a prior exam dated 05/06/2020. IMPRESSION: No acute process. POS: AGW
[2020-10-22 09:45] LABS: ALT (SGPT) 19 U/L (8-55); AST (SGOT) 28 U/L (5-34); Alkaline Phosphatase 76 U/L (40-110); Anion Gap 18 mmol/L (10-20); BUN (Urea Nitrogen) 11 mg/dL (9.8-20.1); Bilirubin, Total 0.3 mg/dL (0.2-1.2); CK (CPK) 49 U/L (29-168); Calc. Creatinine Clearance 0 mL/min (70-130); Calcium 9.1 mg/dL (7.8-10.44); Carbon Dioxide 25 mmol/L (22-29); Chloride 97 mmol/L (98-107); Globulin 3.3 g/dL (2.4-3.5); Glucose 348 mg/dL (70-105); Lipase 17 U/L (8-78); Protein, Total 7.3 g/dL (6.0-8.3); Sodium 136 mmol/L (136-145)
[2020-10-22] MEDS ORDERED: Insulin Regular 300 UNITS/3 ML VIAL ONE (10:09)
[2020-10-22] MEDS ORDERED: Acetaminophen 500 MG TAB ONE (10:09)
--- NOTE | 2020-10-26 15:21 | EKG ---
Test Reason : Blood Pressure : / mmHG Vent. Rate : 073 BPM Atrial Rate : 073 BPM P-R Int : 186 ms QRS Dur : 102 ms QT Int : 460 ms P-R-T Axes : 062 -31 055 degrees QTc Int : 506 ms Normal sinus rhythm Left axis deviation Prolonged QT Abnormal ECG Confirmed by MIGUEL WATERS, MAHENDRA ([id number]), image editor JARED MENA ([id number]) on 10/26/2020 3:20:50 PM Referred By: Confirmed By:MAHENDRA RIVERA MD
== END 2020-10-22 10:34 | disposition home or self-care (01) ==
LOC: ERS 07:06
DX: R00.2 Palpitations (principal); E10.65 Type 1 diabetes mellitus with hyperglycemia; E03.9 Hypothyroidism, unspecified; I10 Essential (primary) hypertension; I42.9 Cardiomyopathy, unspecified; K21.9 Gastro-esophageal reflux disease without esophagitis; Z87.442 Personal history of urinary calculi; D64.9 Anemia, unspecified
CPT/HCPCS: 36415; 36416; 71045; 80053; 82550; 83690; 83880; 84484; 85025; 93005; 96374; J1815

== ENCOUNTER 2022-08-11 21:12 | Inpatient (IN) | payer MEDICARE, MEDICAID ==
[2022-08-11] MEDS ORDERED: Piperacillin/Tazobactam 4.5 GM VIAL ONE (22:20)
[2022-08-11 23:02] LABS: %Lymphocytes 7.6 % (21.0-51.0); %Neutrophils 79.9 % (42.0-75.0); Hemoglobin 8.1 g/dL (12.0-16.0); Mean Corpuscular HGB CONC 32.4 g/dL (32.0-36.0); Mean Corpuscular Hemoglobin 32.1 pg (27.0-31.0); Mean Corpuscular Volume 99.1 fL (78.0-98.0); Mean Platelet Volume 7.2 fL (7.4-10.4); Platelet Count 233 thou/uL (130-400); RBC Distribution Width 12.6 % (11.5-14.5); Red Blood Cell (RBC) Count 2.51 mill/uL (4.20-5.40); White Blood Cell (WBC) Count 16.2 thou/uL (4.8-10.8)
[2022-08-11 23:03] LABS: #Lymphocytes 1.2 thou/uL (1.20-3.40); %Basophils 0.1 % (0.0-1.0); %Eosinophils 0.2 % (0.0-10.0); %Monocytes 12.1 % (0.0-10.0)
[2022-08-11 23:09] LABS: Analyzer IN Cardio ER; Base Excess -12.7 mEq/L (-2.0 to +3.0); Calcium, Ionized (venous) 1.11 mmol/L (1.16-1.32); Chloride (VBG) 112 mmol/L (98-106); Hemoglobin (Hb) 8.9 g/dL (11.7-16.0); Sodium 141.3 mmol/L (133-146); pH (venous) 7.26 (7.32-7.43)
[2022-08-11 23:12] LABS: Actual Bicarbonate (HCO3v) 13 mEq/L (22-28)
[2022-08-11 23:17] LABS: ALT (SGPT) 16 U/L (8-55); AST (SGOT) 38 U/L (5-34); Albumin 3.4 g/dL (3.5-5.0); Alkaline Phosphatase 61 U/L (40-110); Anion Gap 23 mmol/L (10-20); BUN (Urea Nitrogen) 22 mg/dL (9.8-20.1); Bilirubin, Total Less than 0.2 mg/dL (0.2-1.2); Calc. Creatinine Clearance 0 mL/min (70-130); Calcium 8.3 mg/dL (7.8-10.44); Carbon Dioxide 11 mmol/L (22-29); Chloride 111 mmol/L (98-107); Estimated GFR 40; Globulin 2.7 g/dL (2.4-3.5); Glucose 245 mg/dL (70-105); Potassium 3.9 mmol/L (3.5-5.1); Protein, Total 6.1 g/dL (6.0-8.3); Sodium 141 mmol/L (136-145)
[2022-08-12] MEDS ORDERED: Sodium Chloride 0.9% 1,000 ML IV PRN ×4 (01:46)
[2022-08-12] MEDS ORDERED: NS 0.9% w/ 20 MEQ KCL 1,000 ML IV PRN ×2 (01:46)
[2022-08-12] MEDS ORDERED: Electrolyte Replacement Protocol 1 EACH IVPB ONE (01:46)
[2022-08-12] MEDS ORDERED: Dextrose 5 %-0.45 % NaCl 1,000 ML IV PRN (01:46)
[2022-08-12] MEDS ORDERED: HUMULIN R 100 UNITS in Sodium Chloride 0.9% 100 ML IVPB SCH (02:00)
[2022-08-12] MEDS: D5 1/2 NS w/20 mEq KCL 1,000 ML IV PRN ×4 (02:13→22:42)
[2022-08-12] MEDS: Acetaminophen 325 MG TAB PO PRN ×2 (02:14→10:40)
[2022-08-12] MEDS: Ondansetron PF 4 MG/2 ML Vial IVP PRN ×3 (02:14→18:28)
[2022-08-12] MEDS ORDERED: Electrolyte Replacement Protocol FS PRN (02:15)
[2022-08-12 04:14] LABS: Anion Gap 15 mmol/L (10-20); BUN (Urea Nitrogen) 18 mg/dL (9.8-20.1); Calc. Creatinine Clearance 34 mL/min (70-130); Carbon Dioxide 17 mmol/L (22-29); Chloride 113 mmol/L (98-107); Estimated GFR 52; Glucose 144 mg/dL (70-105); Potassium 4.1 mmol/L (3.5-5.1); Sodium 141 mmol/L (136-145)
[2022-08-12 04:29] LABS: #Lymphocytes 1.4 thou/uL (1.20-3.40); #Monocytes 1.9 thou/uL (0.11-0.59); #Neutrophils 11.6 thou/uL (1.40-6.50); %Basophils 0.1 % (0.0-1.0); %Eosinophils 0.1 % (0.0-10.0); %Lymphocytes 9.3 % (21.0-51.0); %Monocytes 12.5 % (0.0-10.0); Hemoglobin 7.9 g/dL (12.0-16.0); Mean Corpuscular HGB CONC 32.8 g/dL (32.0-36.0); Mean Corpuscular Hemoglobin 32.2 pg (27.0-31.0); Mean Corpuscular Volume 98.2 fL (78.0-98.0); Mean Platelet Volume 7.2 fL (7.4-10.4); Platelet Count 214 thou/uL (130-400); RBC Distribution Width 12.9 % (11.5-14.5); Red Blood Cell (RBC) Count 2.45 mill/uL (4.20-5.40); White Blood Cell (WBC) Count 14.9 thou/uL (4.8-10.8)
[2022-08-12] MEDS ORDERED: Fentanyl 100 MCG/2 ML VIAL SLOW IVP SCH (04:45)
[2022-08-12] MEDS: metroNIDAZOLE 500 MG in Premix Bag 1 BAG IVPB SCH ×3 (05:07→21:10)
[2022-08-12 07:26] LABS: Anion Gap 15 mmol/L (10-20); BUN (Urea Nitrogen) 17 mg/dL (9.8-20.1); Calc. Creatinine Clearance 32 mL/min (70-130); Calcium 7.6 mg/dL (7.8-10.44); Carbon Dioxide 15 mmol/L (22-29); Chloride 112 mmol/L (98-107); Estimated GFR 49; Glucose 197 mg/dL (70-105); Potassium 4.4 mmol/L (3.5-5.1); Sodium 138 mmol/L (136-145)
[2022-08-12 07:47] LABS: Hemoglobin A1c 9.7 % (4.0-6.0)
[2022-08-12] MEDS ORDERED: Famotidine 20 MG TAB PO SCH (09:00)
[2022-08-12] MEDS ORDERED: Carvedilol 3.125 MG TAB PO SCH ×2 (11:00→21:00)
[2022-08-12] MEDS: Heparin 5,000 UNITS/ML VIAL SC SCH ×2 (11:11→20:50)
[2022-08-12] MEDS: traZODone HCl 50 MG TAB PO SCH (20:49)
[2022-08-12] MEDS: Carvedilol 3.125 MG TAB PO SCH (20:49)
[2022-08-12] MEDS ORDERED: Non-Formulary Item 1 EACH (Trazodone [Trazodone] 100 MG Tab) PO SCH (21:00)
[2022-08-13] MEDS: D5 1/2 NS w/20 mEq KCL 1,000 ML IV PRN (02:45)
[2022-08-13] MEDS: Ketorolac Tromethamine 30 MG/ML VIAL IVP PRN ×2 (02:52→19:41)
[2022-08-13 05:42] LABS: #Lymphocytes 1.4 thou/uL (1.20-3.40); #Monocytes 0.7 thou/uL (0.11-0.59); #Neutrophils 10.4 thou/uL (1.40-6.50); %Eosinophils 0.1 % (0.0-10.0); %Monocytes 5.8 % (0.0-10.0); %Neutrophils 83.2 % (42.0-75.0); Hemoglobin 8.3 g/dL (12.0-16.0); Mean Corpuscular HGB CONC 32.2 g/dL (32.0-36.0); Mean Corpuscular Hemoglobin 31.9 pg (27.0-31.0); Mean Corpuscular Volume 99.1 fL (78.0-98.0); Mean Platelet Volume 7.8 fL (7.4-10.4); Platelet Count 200 thou/uL (130-400); RBC Distribution Width 13.1 % (11.5-14.5); Red Blood Cell (RBC) Count 2.62 mill/uL (4.20-5.40); White Blood Cell (WBC) Count 12.5 thou/uL (4.8-10.8)
[2022-08-13] MEDS: metroNIDAZOLE 500 MG in Premix Bag 1 BAG IVPB SCH ×3 (05:56→21:08)
[2022-08-13 06:16] LABS: Anion Gap 9 mmol/L (10-20); BUN (Urea Nitrogen) 7 mg/dL (9.8-20.1); Calc. Creatinine Clearance 49 mL/min (70-130); Calcium 7.4 mg/dL (7.8-10.44); Carbon Dioxide 16 mmol/L (22-29); Chloride 115 mmol/L (98-107); Estimated GFR 71; Glucose 191 mg/dL (70-105); Potassium 4.8 mmol/L (3.5-5.1); Sodium 135 mmol/L (136-145)
[2022-08-13] MEDS: Heparin 5,000 UNITS/ML VIAL SC SCH ×2 (08:54→20:20)
[2022-08-13] MEDS: Carvedilol 3.125 MG TAB PO SCH ×2 (08:54→20:19)
[2022-08-13] MEDS ORDERED: Insulin Glargine 30 UNITS/0.3 ML VIAL SC SCH ×2 (09:30→10:00)
[2022-08-13] MEDS ORDERED: Furosemide 20 MG/2 ML VIAL SLOW IVP SCH (11:15)
[2022-08-13] MEDS: Ondansetron PF 4 MG/2 ML Vial IVP PRN (17:06)
[2022-08-13] MEDS: traZODone HCl 50 MG TAB PO SCH (20:19)
[2022-08-14 04:28] LABS: #Lymphocytes 1.7 thou/uL (1.20-3.40); #Monocytes 0.8 thou/uL (0.11-0.59); #Neutrophils 8.3 thou/uL (1.40-6.50); %Basophils 0.2 % (0.0-1.0); %Eosinophils 0.2 % (0.0-10.0); %Lymphocytes 15.5 % (21.0-51.0); %Monocytes 7.2 % (0.0-10.0); %Neutrophils 76.9 % (42.0-75.0); Hemoglobin 9.1 g/dL (12.0-16.0); Mean Corpuscular HGB CONC 32.1 g/dL (32.0-36.0); Mean Corpuscular Hemoglobin 31.6 pg (27.0-31.0); Mean Corpuscular Volume 98.5 fL (78.0-98.0); Mean Platelet Volume 7.7 fL (7.4-10.4); Platelet Count 212 thou/uL (130-400); RBC Distribution Width 13.4 % (11.5-14.5); Red Blood Cell (RBC) Count 2.88 mill/uL (4.20-5.40); White Blood Cell (WBC) Count 10.7 thou/uL (4.8-10.8)
[2022-08-14] MEDS: metroNIDAZOLE 500 MG in Premix Bag 1 BAG IVPB SCH ×3 (05:03→20:45)
[2022-08-14 05:14] LABS: BUN (Urea Nitrogen) 8 mg/dL (9.8-20.1); Calc. Creatinine Clearance 43 mL/min (70-130); Calcium 7.5 mg/dL (7.8-10.44); Carbon Dioxide 17 mmol/L (22-29); Chloride 115 mmol/L (98-107); Estimated GFR 61; Glucose 161 mg/dL (70-105); Potassium 4.4 mmol/L (3.5-5.1); Sodium 138 mmol/L (136-145)
[2022-08-14] MEDS: Ketorolac Tromethamine 30 MG/ML VIAL IVP PRN (05:17)
[2022-08-14 05:48] LABS: Anion Gap 10 mmol/L (10-20)
[2022-08-14] MEDS: Insulin Glargine 30 UNITS/0.3 ML VIAL SC SCH (08:19)
[2022-08-14] MEDS: Carvedilol 3.125 MG TAB PO SCH ×2 (08:19→20:44)
[2022-08-14] MEDS: Heparin 5,000 UNITS/ML VIAL SC SCH ×2 (08:19→20:44)
[2022-08-14] MEDS: Sodium Bicarbonate Tab 325 MG TAB PO SCH ×2 (10:21→20:43)
[2022-08-14] MEDS: HumaLOG 300 UNITS/3 ML VIAL SC PRN (12:52)
[2022-08-14] MEDS: traZODone HCl 50 MG TAB PO SCH (20:43)
[2022-08-15] MEDS: metroNIDAZOLE 500 MG in Premix Bag 1 BAG IVPB SCH ×3 (05:02→20:36)
[2022-08-15 05:51] LABS: #Eosinphils 0.1 thou/uL (0.0-0.7); #Lymphocytes 1.6 thou/uL (1.20-3.40); #Monocytes 0.7 thou/uL (0.11-0.59); #Neutrophils 6.8 thou/uL (1.40-6.50); %Basophils 0.3 % (0.0-1.0); %Lymphocytes 17.6 % (21.0-51.0); %Monocytes 7.5 % (0.0-10.0); %Neutrophils 73.5 % (42.0-75.0); Hemoglobin 9.7 g/dL (12.0-16.0); Mean Corpuscular HGB CONC 32.6 g/dL (32.0-36.0); Mean Corpuscular Hemoglobin 32.1 pg (27.0-31.0); Mean Corpuscular Volume 98.6 fL (78.0-98.0); Mean Platelet Volume 7.6 fL (7.4-10.4); Platelet Count 224 thou/uL (130-400); RBC Distribution Width 13.4 % (11.5-14.5); Red Blood Cell (RBC) Count 3.01 mill/uL (4.20-5.40); White Blood Cell (WBC) Count 9.2 thou/uL (4.8-10.8)
[2022-08-15 06:11] LABS: Anion Gap 13 mmol/L (10-20); BUN (Urea Nitrogen) 9 mg/dL (9.8-20.1); Calc. Creatinine Clearance 44 mL/min (70-130); Calcium 7.6 mg/dL (7.8-10.44); Carbon Dioxide 17 mmol/L (22-29); Chloride 113 mmol/L (98-107); Estimated GFR 62; Glucose 150 mg/dL (70-105); Potassium 4.4 mmol/L (3.5-5.1); Sodium 139 mmol/L (136-145)
[2022-08-15] MEDS ORDERED: Prevnar 13-Val Conj/PF 0.5 ML SYRINGE IM ONE (09:00)
[2022-08-15] MEDS ORDERED: FLU VACC QS2022-23(6MOS UP)/PF 60 MCG/0.5 ML SYRINGE IM ONE (09:00)
[2022-08-15] MEDS: Carvedilol 3.125 MG TAB PO SCH ×2 (09:15→20:33)
[2022-08-15] MEDS: Sodium Bicarbonate Tab 325 MG TAB PO SCH ×2 (09:16→20:36)
[2022-08-15] MEDS: Insulin Glargine 30 UNITS/0.3 ML VIAL SC SCH ×2 (09:16→19:57)
[2022-08-15] MEDS: Heparin 5,000 UNITS/ML VIAL SC SCH ×2 (09:16→20:37)
[2022-08-15] MEDS ORDERED: Furosemide 40 MG/4 ML VIAL SLOW IVP SCH (10:30)
[2022-08-15] MEDS: HumaLOG 300 UNITS/3 ML VIAL SC PRN (12:08)
[2022-08-15] MEDS: traZODone HCl 50 MG TAB PO SCH (20:36)
[2022-08-15] MEDS: Rosuvastatin 20 MG TAB PO SCH (20:37)
[2022-08-16] MEDS: metroNIDAZOLE 500 MG in Premix Bag 1 BAG IVPB SCH ×3 (04:34→21:06)
[2022-08-16 08:02] LABS: Anion Gap 14 mmol/L (10-20); BUN (Urea Nitrogen) 11 mg/dL (9.8-20.1); Calc. Creatinine Clearance 40 mL/min (70-130); Calcium 8.3 mg/dL (7.8-10.44); Carbon Dioxide 19 mmol/L (22-29); Chloride 110 mmol/L (98-107); Estimated GFR 54; Glucose 113 mg/dL (70-105); Potassium 3.5 mmol/L (3.5-5.1); Sodium 139 mmol/L (136-145)
[2022-08-16] MEDS ORDERED: Potassium Chloride 20 MEQ TAB PO SCH (09:00)
[2022-08-16] MEDS: Heparin 5,000 UNITS/ML VIAL SC SCH ×2 (10:17→21:04)
[2022-08-16] MEDS: Sodium Bicarbonate Tab 325 MG TAB PO SCH ×2 (10:17→21:05)
[2022-08-16] MEDS: Carvedilol 3.125 MG TAB PO SCH ×2 (10:18→21:05)
[2022-08-16] MEDS: Furosemide 40 MG TAB PO SCH (10:18)
[2022-08-16] MEDS: Insulin Glargine 30 UNITS/0.3 ML VIAL SC SCH ×2 (10:22→21:05)
[2022-08-16] MEDS: HumaLOG 300 UNITS/3 ML VIAL SC PRN (17:43)
[2022-08-16] MEDS: Rosuvastatin 20 MG TAB PO SCH (21:05)
[2022-08-16] MEDS: traZODone HCl 50 MG TAB PO SCH (21:06)
[2022-08-16] MEDS: Ketorolac Tromethamine 30 MG/ML VIAL IVP PRN (21:08)
[2022-08-17] MEDS: metroNIDAZOLE 500 MG in Premix Bag 1 BAG IVPB SCH ×3 (05:18→20:33)
[2022-08-17] MEDS: Ondansetron PF 4 MG/2 ML Vial IVP PRN (05:21)
[2022-08-17 07:26] LABS: Anion Gap 12 mmol/L (10-20); BUN (Urea Nitrogen) 12 mg/dL (9.8-20.1); Calc. Creatinine Clearance 39 mL/min (70-130); Calcium 8.5 mg/dL (7.8-10.44); Carbon Dioxide 22 mmol/L (22-29); Chloride 106 mmol/L (98-107); Estimated GFR 54; Glucose 86 mg/dL (70-105); Potassium 3.3 mmol/L (3.5-5.1); Sodium 137 mmol/L (136-145)
[2022-08-17] MEDS ORDERED: Potassium Chloride 20 MEQ TAB PO SCH (08:00)
[2022-08-17] MEDS: Heparin 5,000 UNITS/ML VIAL SC SCH ×2 (08:22→20:34)
[2022-08-17] MEDS: Carvedilol 3.125 MG TAB PO SCH ×2 (08:22→20:33)
[2022-08-17] MEDS: Sodium Bicarbonate Tab 325 MG TAB PO SCH ×2 (08:22→20:33)
[2022-08-17] MEDS: Insulin Glargine 30 UNITS/0.3 ML VIAL SC SCH ×2 (08:22→20:32)
[2022-08-17] MEDS: Furosemide 40 MG TAB PO SCH (08:22)
[2022-08-17 10:56] VITALS: BMI 22.2
[2022-08-17] MEDS: traZODone HCl 50 MG TAB PO SCH (20:33)
[2022-08-17] MEDS: Rosuvastatin 20 MG TAB PO SCH (20:33)
[2022-08-18] MEDS: Acetaminophen 325 MG TAB PO PRN (03:58)
[2022-08-18] MEDS: Ondansetron PF 4 MG/2 ML Vial IVP PRN (03:58)
[2022-08-18] MEDS: metroNIDAZOLE 500 MG in Premix Bag 1 BAG IVPB SCH ×3 (05:32→21:01)
[2022-08-18 06:42] LABS: Anion Gap 16 mmol/L (10-20); BUN (Urea Nitrogen) 9 mg/dL (9.8-20.1); Calc. Creatinine Clearance 39 mL/min (70-130); Calcium 8.4 mg/dL (7.8-10.44); Carbon Dioxide 19 mmol/L (22-29); Chloride 109 mmol/L (98-107); Estimated GFR 51; Glucose 195 mg/dL (70-105); Potassium 4.1 mmol/L (3.5-5.1); Sodium 140 mmol/L (136-145)
[2022-08-18] MEDS: Insulin Glargine 30 UNITS/0.3 ML VIAL SC SCH ×2 (08:36→21:00)
[2022-08-18] MEDS: Heparin 5,000 UNITS/ML VIAL SC SCH ×2 (08:36→21:00)
[2022-08-18] MEDS: Carvedilol 3.125 MG TAB PO SCH ×2 (08:36→21:00)
[2022-08-18] MEDS: Furosemide 40 MG TAB PO SCH (08:36)
[2022-08-18] MEDS: Sodium Bicarbonate Tab 325 MG TAB PO SCH ×2 (08:37→21:01)
[2022-08-18] MEDS ORDERED: ALPRAZolam 0.25 MG TAB PO PRN (09:35)
[2022-08-18] MEDS ORDERED: ALPRAZolam 0.25 MG TAB PO SCH (09:45)
[2022-08-18] MEDS ORDERED: Furosemide 20 MG/2 ML VIAL SLOW IVP SCH (09:45)
[2022-08-18 19:38] VITALS: BP 117/67; TEMP 98.3
[2022-08-18] MEDS: Rosuvastatin 20 MG TAB PO SCH (21:00)
[2022-08-18] MEDS: traZODone HCl 50 MG TAB PO SCH (21:01)
[2022-08-19] MEDS: Acetaminophen 325 MG TAB PO PRN (00:27)
[2022-08-19] MEDS: metroNIDAZOLE 500 MG in Premix Bag 1 BAG IVPB SCH ×2 (06:18→13:18)
[2022-08-19] MEDS: Heparin 5,000 UNITS/ML VIAL SC SCH (08:51)
[2022-08-19] MEDS: Ondansetron PF 4 MG/2 ML Vial IVP PRN (08:51)
[2022-08-19] MEDS: Furosemide 40 MG TAB PO SCH (08:51)
[2022-08-19] MEDS: Insulin Glargine 30 UNITS/0.3 ML VIAL SC SCH (08:51)
[2022-08-19] MEDS: Carvedilol 3.125 MG TAB PO SCH (08:51)
[2022-08-19] MEDS: Sodium Bicarbonate Tab 325 MG TAB PO SCH (08:52)
[2022-08-19 09:34] LABS: Anion Gap 16 mmol/L (10-20); BUN (Urea Nitrogen) 14 mg/dL (9.8-20.1); Calc. Creatinine Clearance 38 mL/min (70-130); Carbon Dioxide 22 mmol/L (22-29); Chloride 104 mmol/L (98-107); Estimated GFR 50; Glucose 295 mg/dL (70-105); Potassium 3.8 mmol/L (3.5-5.1); Sodium 138 mmol/L (136-145)
[2022-08-19] MEDS ORDERED: Aluminum & Magnesium Hydroxide 60 ML, diphenhydrAMINE 150 MG, Lidocaine 2% Viscous Solu... SSW SCH (11:30)
[2022-08-19] MEDS: HumaLOG 300 UNITS/3 ML VIAL SC PRN (12:38)
== END 2022-08-19 15:54 | DRG 637 ==
LOC: ERS 21:12 → IMCU/EMU 22:18 → T4-A 08-13 18:08
PROVIDERS: ADMIT Family Medicine; ATTEND Family Medicine
DX: E10.10 Type 1 diabetes mellitus with ketoacidosis without coma (principal); I50.33 Acute on chronic diastolic (congestive) heart failure; N17.9 Acute kidney failure, unspecified; I13.0 Hypertensive heart and chronic kidney disease with heart failure and stage 1 through stage 4 chronic kidney disease, or unspecified chronic kidney disease; Z20.822 Contact with and (suspected) exposure to COVID-19; N18.30 Chronic kidney disease, stage 3 unspecified; E03.9 Hypothyroidism, unspecified; F32.A Depression, unspecified; F41.9 Anxiety disorder, unspecified; D63.1 Anemia in chronic kidney disease; K21.9 Gastro-esophageal reflux disease without esophagitis; K52.9 Noninfective gastroenteritis and colitis, unspecified; E87.5 Hyperkalemia; E10.649 Type 1 diabetes mellitus with hypoglycemia without coma; Z88.1 Allergy status to other antibiotic agents; Z88.5 Allergy status to narcotic agent; Z88.2 Allergy status to sulfonamides; Z88.8 Allergy status to other drugs, medicaments and biological substances; Z79.899 Other long term (current) drug therapy; Z79.4 Long term (current) use of insulin; Z95.810 Presence of automatic (implantable) cardiac defibrillator; Z90.710 Acquired absence of both cervix and uterus; Z90.49 Acquired absence of other specified parts of digestive tract; Z83.3 Family history of diabetes mellitus
CPT/HCPCS: 36415; 36416; 71045; 80048; 82805; 83036; 83880; 85025; 87811; 96374; 96375; J1644; J1815; J1885; J1940; J1956; J2405; J2543; J3010; J3480; J3490; U0003; U0005

== ENCOUNTER 2023-02-20 15:52 | Inpatient (IN) | payer MEDICARE, MEDICAID ==
[2023-02-20] MEDS ORDERED: Dextrose 5 %-0.45 % NaCl 1,000 ML IV PRN (17:06)
[2023-02-20] MEDS ORDERED: NS 0.9% w/ 20 MEQ KCL 1,000 ML IV PRN ×2 (17:06)
[2023-02-20] MEDS ORDERED: D5 1/2 NS w/20 mEq KCL 1,000 ML IV PRN (17:06)
[2023-02-20] MEDS ORDERED: Electrolyte Replacement Protocol 1 EACH IVPB SCH (17:06)
[2023-02-20] MEDS ORDERED: Sodium Chloride 0.9% 1,000 ML IV PRN ×4 (17:06)
[2023-02-20] MEDS ORDERED: Acetaminophen 325 MG TAB PO PRN (17:06)
[2023-02-20] MEDS ORDERED: Dextrose 50% Abboject 50 ML SYRINGE SLOW IVP PRN ×2 (17:06→18:44)
[2023-02-20] MEDS ORDERED: HUMULIN R 100 UNITS in Sodium Chloride 0.9% 100 ML IVPB SCH (17:15)
[2023-02-20 18:24] LABS: Anion Gap 19 mmol/L (10-20); BUN (Urea Nitrogen) 32 mg/dL (9.8-20.1); Calc. Creatinine Clearance 28 mL/min (70-130); Calcium 9.2 mg/dL (7.8-10.44); Carbon Dioxide 26 mmol/L (22-29); Chloride 98 mmol/L (98-107); Estimated GFR 42; Glucose 191 mg/dL (70-105); Phosphorus 2.7 mg/dL (2.3-4.7); Potassium 4.5 mmol/L (3.5-5.1); Sodium 138 mmol/L (136-145)
[2023-02-20] MEDS ORDERED: HumaLOG 300 UNITS/3 ML VIAL SC PRN (18:44)
[2023-02-20] MEDS ORDERED: Dextrose 5% in Water 1,000 ML IV PRN (18:44)
[2023-02-20] MEDS ORDERED: Acetaminophen 500 MG TAB PO PRN (18:48)
[2023-02-20] MEDS ORDERED: Bisacodyl 5 MG TAB PO PRN (18:48)
[2023-02-20] MEDS ORDERED: Polyethylene Glycol 3350 17 GM Packet PO PRN (18:48)
[2023-02-20] MEDS ORDERED: Bisacodyl 10 MG SUPP PR PRN (18:48)
[2023-02-20] MEDS ORDERED: hydrALAZINE 20 MG/ML VIAL SLOW IVP PRN (18:55)
[2023-02-20 19:56] LABS: Lactic Acid 1.5 mmol/L (0.5-2.2)
[2023-02-20] MEDS ORDERED: Famotidine/PF 20 mg/2ml Vial SLOW IVP SCH (21:00)
[2023-02-20] MEDS: Mirtazapine 15 MG TAB PO SCH (21:06)
[2023-02-20] MEDS: Famotidine 20 MG TAB PO SCH (21:06)
[2023-02-20] MEDS: traZODone HCl 50 MG TAB PO SCH (21:06)
[2023-02-20] MEDS: Carvedilol 3.125 MG TAB PO SCH (21:07)
[2023-02-20] MEDS: Rosuvastatin 10 MG TAB PO SCH (21:07)
[2023-02-20] MEDS: Insulin Glargine 30 UNITS/0.3 ML VIAL SC SCH (21:08)
[2023-02-20] MEDS: Heparin 5,000 UNITS/ML VIAL SC SCH (21:09)
[2023-02-20] MEDS: HumaLOG 300 UNITS/3 ML VIAL SC PRN (21:09)
[2023-02-20] MEDS ORDERED: Magnesium 2 GM/50 ML(in water) 2 GM in Premix Bag 1 BAG IVPB SCH (21:30)
[2023-02-20 22:07] LABS: Lactic Acid 1.4 mmol/L (0.5-2.2)
[2023-02-20] MEDS ORDERED: Lactated Ringer's 500 ML IV SCH (22:30)
[2023-02-21] MEDS: HumaLOG 300 UNITS/3 ML VIAL SC PRN ×3 (00:58→17:11)
[2023-02-21 02:21] LABS: Anion Gap 22 mmol/L (10-20); BUN (Urea Nitrogen) 32 mg/dL (9.8-20.1); Calc. Creatinine Clearance 24 mL/min (70-130); Calcium 8.7 mg/dL (7.8-10.44); Carbon Dioxide 19 mmol/L (22-29); Chloride 98 mmol/L (98-107); Estimated GFR 36; Glucose 328 mg/dL (70-105); Potassium 3.9 mmol/L (3.5-5.1); Sodium 135 mmol/L (136-145)
[2023-02-21] MEDS ORDERED: Lactated Ringer's 1,000 ML IV SCH (03:00)
[2023-02-21] MEDS: Ondansetron PF 4 MG/2 ML Vial IVP PRN (03:05)
[2023-02-21] MEDS: traMADol HCl 50 MG TAB PO PRN ×2 (06:01→18:21)
[2023-02-21] MEDS: Levothyroxine Sodium 88 MCG TAB PO SCH (06:02)
[2023-02-21] MEDS: Carvedilol 3.125 MG TAB PO SCH ×2 (08:45→20:18)
[2023-02-21] MEDS: Heparin 5,000 UNITS/ML VIAL SC SCH ×3 (08:46→20:21)
[2023-02-21 10:08] LABS: ALT (SGPT) 15 U/L (8-55); AST (SGOT) 42 U/L (5-34); Albumin 3.6 g/dL (3.5-5.0); Alkaline Phosphatase 130 U/L (40-110); Anion Gap 18 mmol/L (10-20); BUN (Urea Nitrogen) 25 mg/dL (9.8-20.1); Bilirubin, Total 0.2 mg/dL (0.2-1.2); Calc. Creatinine Clearance 30 mL/min (70-130); Carbon Dioxide 24 mmol/L (22-29); Chloride 99 mmol/L (98-107); Estimated GFR 47; Globulin 3.2 g/dL (2.4-3.5); Glucose 178 mg/dL (70-105); Potassium 4.8 mmol/L (3.5-5.1); Protein, Total 6.8 g/dL (6.0-8.3); Sodium 136 mmol/L (136-145)
[2023-02-21] MEDS ORDERED: cefTRIAXone\\ROCEPHIN 1 GM in Sodium Chloride 0.9% 100 ML IVPB SCH (11:00)
[2023-02-21] MEDS ORDERED: AMOXicillin 250 MG CAP PO SCH (12:00)
[2023-02-21] MEDS ORDERED: Fosfomycin 3 GM/Packet PO SCH (12:00)
[2023-02-21 13:53] VITALS: BMI 18.2
[2023-02-21] MEDS: Famotidine 20 MG TAB PO SCH (20:19)
[2023-02-21] MEDS: Rosuvastatin 10 MG TAB PO SCH (20:19)
[2023-02-21] MEDS: traZODone HCl 50 MG TAB PO SCH (20:20)
[2023-02-21] MEDS: Mirtazapine 15 MG TAB PO SCH (20:20)
[2023-02-21] MEDS: Insulin Glargine 30 UNITS/0.3 ML VIAL SC SCH (20:21)
[2023-02-22] MEDS: Levothyroxine Sodium 88 MCG TAB PO SCH (06:01)
[2023-02-22 07:01] LABS: #Basophils 0.1 thou/uL (0.0-0.2); #Eosinphils 0.1 thou/uL (0.0-0.7); #Lymphocytes 2.7 thou/uL (1.20-3.40); #Monocytes 0.4 thou/uL (0.11-0.59); #Neutrophils 3.3 thou/uL (1.40-6.50); %Basophils 0.8 % (0.0-1.0); %Eosinophils 1.9 % (0.0-10.0); %Lymphocytes 40.9 % (21.0-51.0); %Monocytes 6.1 % (0.0-10.0); %Neutrophils 50.3 % (42.0-75.0); Hemoglobin 11.1 g/dL (12.0-16.0); Mean Corpuscular HGB CONC 33.8 g/dL (32.0-36.0); Mean Corpuscular Hemoglobin 30.2 pg (27.0-31.0); Mean Corpuscular Volume 89.3 fl (78.0-98.0); Mean Platelet Volume 8.2 fL (7.4-10.4); Platelet Count 189 10x3/uL (130-400); RBC Distribution Width 16.3 % (11.5-14.5); Red Blood Cell (RBC) Count 3.69 mill/uL (4.20-5.40); White Blood Cell (WBC) Count 6.7 10x3/uL (4.8-10.8)
[2023-02-22 07:17] LABS: ALT (SGPT) 29 U/L (8-55); AST (SGOT) 70 U/L (5-34); Albumin 3.8 g/dL (3.5-5.0); Alkaline Phosphatase 143 U/L (40-110); Anion Gap 15 mmol/L (10-20); BUN (Urea Nitrogen) 21 mg/dL (9.8-20.1); Bilirubin, Total 0.2 mg/dL (0.2-1.2); Calc. Creatinine Clearance 31 mL/min (70-130); Calcium 9.4 mg/dL (7.8-10.44); Carbon Dioxide 26 mmol/L (22-29); Chloride 105 mmol/L (98-107); Estimated GFR 49; Globulin 3.4 g/dL (2.4-3.5); Glucose 110 mg/dL (70-105); Potassium 4.5 mmol/L (3.5-5.1); Protein, Total 7.2 g/dL (6.0-8.3); Sodium 141 mmol/L (136-145)
[2023-02-22] MEDS: Heparin 5,000 UNITS/ML VIAL SC SCH ×3 (08:33→14:55)
[2023-02-22] MEDS: traMADol HCl 50 MG TAB PO PRN ×2 (08:40→20:43)
[2023-02-22] MEDS: Carvedilol 3.125 MG TAB PO SCH ×2 (09:09→20:42)
[2023-02-22] MEDS: Ondansetron PF 4 MG/2 ML Vial IVP PRN ×2 (11:15→18:30)
[2023-02-22] MEDS: HumaLOG 300 UNITS/3 ML VIAL SC PRN (12:21)
[2023-02-22] MEDS ORDERED: Fluconazole 100 MG TAB PO SCH (13:23)
[2023-02-22] MEDS: Famotidine 20 MG TAB PO SCH (20:41)
[2023-02-22] MEDS: Rosuvastatin 10 MG TAB PO SCH (20:41)
[2023-02-22] MEDS: Mirtazapine 15 MG TAB PO SCH (20:42)
[2023-02-22] MEDS: Insulin Glargine 30 UNITS/0.3 ML VIAL SC SCH (20:44)
[2023-02-22] MEDS: traZODone HCl 50 MG TAB PO SCH (20:53)
[2023-02-23] MEDS: Levothyroxine Sodium 88 MCG TAB PO SCH (05:35)
[2023-02-23 07:02] LABS: #Basophils 0.1 thou/uL (0.0-0.2); #Eosinphils 0.2 thou/uL (0.0-0.7); #Lymphocytes 2.4 thou/uL (1.20-3.40); #Monocytes 0.4 thou/uL (0.11-0.59); #Neutrophils 2.5 thou/uL (1.40-6.50); %Basophils 1.4 % (0.0-1.0); %Eosinophils 2.9 % (0.0-10.0); %Lymphocytes 43.2 % (21.0-51.0); %Monocytes 7.6 % (0.0-10.0); Hemoglobin 9.3 g/dL (12.0-16.0); Mean Corpuscular HGB CONC 32.5 g/dL (32.0-36.0); Mean Corpuscular Hemoglobin 29.3 pg (27.0-31.0); Mean Corpuscular Volume 89.9 fl (78.0-98.0); Mean Platelet Volume 7.8 fL (7.4-10.4); Platelet Count 181 10x3/uL (130-400); RBC Distribution Width 16.5 % (11.5-14.5); Red Blood Cell (RBC) Count 3.17 mill/uL (4.20-5.40); White Blood Cell (WBC) Count 5.6 10x3/uL (4.8-10.8)
[2023-02-23 07:23] LABS: ALT (SGPT) 19 U/L (8-55); AST (SGOT) 32 U/L (5-34); Albumin 3.3 g/dL (3.5-5.0); Alkaline Phosphatase 117 U/L (40-110); Anion Gap 15 mmol/L (10-20); BUN (Urea Nitrogen) 20 mg/dL (9.8-20.1); Bilirubin, Total 0.2 mg/dL (0.2-1.2); Calc. Creatinine Clearance 35 mL/min (70-130); Carbon Dioxide 23 mmol/L (22-29); Chloride 107 mmol/L (98-107); Estimated GFR 56; Globulin 2.8 g/dL (2.4-3.5); Glucose 113 mg/dL (70-105); Potassium 4.6 mmol/L (3.5-5.1); Protein, Total 6.1 g/dL (6.0-8.3); Sodium 140 mmol/L (136-145)
[2023-02-23] MEDS: Carvedilol 3.125 MG TAB PO SCH ×2 (08:16→19:55)
[2023-02-23] MEDS: Heparin 5,000 UNITS/ML VIAL SC SCH ×3 (08:16→19:54)
[2023-02-23] MEDS: traMADol HCl 50 MG TAB PO PRN ×2 (09:40→19:54)
[2023-02-23] MEDS: Ondansetron PF 4 MG/2 ML Vial IVP PRN (12:17)
[2023-02-23] MEDS: HumaLOG 300 UNITS/3 ML VIAL SC PRN ×2 (12:21→17:14)
[2023-02-23] MEDS: Insulin Glargine 30 UNITS/0.3 ML VIAL SC SCH (19:51)
[2023-02-23] MEDS: Sacubitril 24MG/Valsartan 26 MG TAB PO SCH (19:53)
[2023-02-23] MEDS: traZODone HCl 50 MG TAB PO SCH (19:55)
[2023-02-23] MEDS: Famotidine 20 MG TAB PO SCH (19:56)
[2023-02-23] MEDS: Mirtazapine 15 MG TAB PO SCH (19:56)
[2023-02-23] MEDS: Rosuvastatin 10 MG TAB PO SCH (19:57)
[2023-02-24] MEDS: Levothyroxine Sodium 88 MCG TAB PO SCH (05:34)
[2023-02-24] MEDS: HumaLOG 300 UNITS/3 ML VIAL SC PRN ×2 (05:34→12:37)
[2023-02-24 06:49] LABS: #Eosinphils 0.1 thou/uL (0.0-0.7); #Lymphocytes 2.2 thou/uL (1.20-3.40); #Monocytes 0.4 thou/uL (0.11-0.59); #Neutrophils 3.3 thou/uL (1.40-6.50); %Basophils 0.6 % (0.0-1.0); %Lymphocytes 35.9 % (21.0-51.0); %Neutrophils 54.6 % (42.0-75.0); Hemoglobin 9.3 g/dL (12.0-16.0); Mean Corpuscular Hemoglobin 30.4 pg (27.0-31.0); Mean Corpuscular Volume 89.6 fl (78.0-98.0); Mean Platelet Volume 7.7 fL (7.4-10.4); Platelet Count 188 10x3/uL (130-400); RBC Distribution Width 16.6 % (11.5-14.5); Red Blood Cell (RBC) Count 3.05 mill/uL (4.20-5.40)
[2023-02-24 07:05] LABS: ALT (SGPT) 22 U/L (8-55); AST (SGOT) 41 U/L (5-34); Albumin 3.3 g/dL (3.5-5.0); Alkaline Phosphatase 116 U/L (40-110); Anion Gap 14 mmol/L (10-20); BUN (Urea Nitrogen) 22 mg/dL (9.8-20.1); Bilirubin, Total 0.2 mg/dL (0.2-1.2); Calc. Creatinine Clearance 32 mL/min (70-130); Calcium 8.7 mg/dL (7.8-10.44); Carbon Dioxide 22 mmol/L (22-29); Chloride 104 mmol/L (98-107); Estimated GFR 51; Globulin 2.8 g/dL (2.4-3.5); Glucose 280 mg/dL (70-105); Potassium 4.6 mmol/L (3.5-5.1); Protein, Total 6.1 g/dL (6.0-8.3); Sodium 135 mmol/L (136-145)
[2023-02-24] MEDS: traMADol HCl 50 MG TAB PO PRN (08:16)
[2023-02-24] MEDS: Carvedilol 3.125 MG TAB PO SCH (08:16)
[2023-02-24] MEDS: Sacubitril 24MG/Valsartan 26 MG TAB PO SCH (08:16)
[2023-02-24] MEDS: Heparin 5,000 UNITS/ML VIAL SC SCH (08:17)
[2023-02-24 08:32] VITALS: TEMP 98.4
[2023-02-24] MEDS ORDERED: Lidocaine 4% Patch TD SCH (09:00)
[2023-02-24 12:16] VITALS: BP 116/68
[2023-02-24] MEDS ORDERED: Transdermal Patch Removal TOP SCH (21:00)
== END 2023-02-24 13:02 | DRG 638 ==
LOC: IMCU/EMU 15:52 → T4-B 02-21 15:11
PROVIDERS: ADMIT Family Medicine; ATTEND Family Medicine
DX: E10.65 Type 1 diabetes mellitus with hyperglycemia (principal); E87.20 Acidosis, unspecified; I13.0 Hypertensive heart and chronic kidney disease with heart failure and stage 1 through stage 4 chronic kidney disease, or unspecified chronic kidney disease; N39.0 Urinary tract infection, site not specified; I50.22 Chronic systolic (congestive) heart failure; N17.9 Acute kidney failure, unspecified; Z66 Do not resuscitate; F41.9 Anxiety disorder, unspecified; N18.2 Chronic kidney disease, stage 2 (mild); E10.22 Type 1 diabetes mellitus with diabetic chronic kidney disease; B37.31 Acute candidiasis of vulva and vagina; Z88.2 Allergy status to sulfonamides; Z95.810 Presence of automatic (implantable) cardiac defibrillator; Z88.5 Allergy status to narcotic agent; Z88.8 Allergy status to other drugs, medicaments and biological substances; Z79.4 Long term (current) use of insulin; Z79.890 Hormone replacement therapy; Z79.899 Other long term (current) drug therapy; Z90.49 Acquired absence of other specified parts of digestive tract; Z90.710 Acquired absence of both cervix and uterus
CPT/HCPCS: 36415; 36416; 74176; 80053; 83605; 83735; 84100; 85025; 87480; 87510; 87660; J1644; J1815; J2405; J3475; J7120

== ENCOUNTER 2024-03-21 07:19 | Day surgery (SDC) | payer MEDICARE, MEDICAID ==
[2024-03-17 13:25] VITALS: BMI 19.2
[2024-03-21] MEDS ORDERED: PROPOFOL 40 ML ONE (09:01)
[2024-03-21] MEDS ORDERED: Lidocaine 1% PF 5 ML VIAL ONE (09:13)
[2024-03-21 11:11] LABS: Iron 71 ug/dL (50-170); Iron Binding Capacity, Total 275 mcg/dL (265-497)
[2024-03-21 11:38] LABS: Ferritin 80.27 ng/mL (10-291)
== END 2024-03-21 11:38 | disposition home or self-care (01) ==
LOC: SDC 07:19
PROVIDERS: ATTEND Internal Medicine Gastroenterology
PROC: 0DB98ZX Excision of Duodenum, Via Natural or Artificial Opening Endoscopic, Diagnostic (ICD-10-PCS; principal; 2024-03-21)
PROC: 0DB68ZX Excision of Stomach, Via Natural or Artificial Opening Endoscopic, Diagnostic (ICD-10-PCS; 2024-03-21)
PROC: 0DB58ZX Excision of Esophagus, Via Natural or Artificial Opening Endoscopic, Diagnostic (ICD-10-PCS; 2024-03-21)
PROC: 0DBN8ZZ Excision of Sigmoid Colon, Via Natural or Artificial Opening Endoscopic (ICD-10-PCS; 2024-03-21)
DX: Z12.11 Encounter for screening for malignant neoplasm of colon (principal); D12.5 Benign neoplasm of sigmoid colon; K31.7 Polyp of stomach and duodenum; K31.89 Other diseases of stomach and duodenum; K44.9 Diaphragmatic hernia without obstruction or gangrene; K29.50 Unspecified chronic gastritis without bleeding; K21.9 Gastro-esophageal reflux disease without esophagitis; I13.0 Hypertensive heart and chronic kidney disease with heart failure and stage 1 through stage 4 chronic kidney disease, or unspecified chronic kidney disease; I50.9 Heart failure, unspecified; N18.30 Chronic kidney disease, stage 3 unspecified; D63.1 Anemia in chronic kidney disease; D50.9 Iron deficiency anemia, unspecified; E10.22 Type 1 diabetes mellitus with diabetic chronic kidney disease; R30.0 Dysuria; F03.90 Unspecified dementia, unspecified severity, without behavioral disturbance, psychotic disturbance, mood disturbance, and anxiety; F32.A Depression, unspecified; E78.00 Pure hypercholesterolemia, unspecified; E03.9 Hypothyroidism, unspecified; Z90.49 Acquired absence of other specified parts of digestive tract; Z96.641 Presence of right artificial hip joint; Z79.890 Hormone replacement therapy; Z79.4 Long term (current) use of insulin; Z79.899 Other long term (current) drug therapy; Z88.5 Allergy status to narcotic agent; Z88.2 Allergy status to sulfonamides; Z98.890 Other specified postprocedural states
CPT/HCPCS: 36415; 36416; 82607; 82728; 83540; 83550; 88305; J2704

== ENCOUNTER 2024-11-02 07:21 | Outpatient (CLI) | payer MEDICARE, MEDICAID | END 2024-11-02 07:22 | disposition home or self-care (01) | LOC: ULT 07:21 | PROVIDERS: ATTEND Physician Assistant Medical | DX: R79.89 Other specified abnormal findings of blood chemistry (principal); K83.8 Other specified diseases of biliary tract; Z90.49 Acquired absence of other specified parts of digestive tract | CPT/HCPCS: 76705 ==